=== PATIENT | male | born 1985 | race Caucasian/White ===

== ENCOUNTER 2022-09-01 14:37 | Inpatient (IN) | payer OTHER, SELFPAY ==
[2022-09-01] VITALS (7 sets, daily range): BP systolic 129–157; BP diastolic 77–85; PULSE 98–126; RESP 18–20; TEMP 37.1–37.4; O2SAT 94–98; BMI 40.5; BMI 40.8
--- NOTE | 2022-09-01 14:51 | PC.NURSE ---
Attempted IV 3 times without success, pt stated that usually have issues starting IVs.
--- NOTE | 2022-09-01 15:25 | XR_ITS ---
FINAL REPORT CLINICAL HISTORY: CHEST PAIN FINDINGS: SINGLE-VIEW CHEST The heart size is normal. The mediastinum is normal. There are bilateral pulmonary opacities, may represent atelectasis or pneumonia. There is no pneumothorax. IMPRESSION: Bilateral atelectasis versus pneumonia. Reviewed, Interpreted and Dictated by Kameron Wang III, MD Transcribed by Jenny Carver Authenticated and [facility]
[2022-09-01 15:32] LABS: Basophils # 0.1 K/mm3 (0-0.2); Basophils % 0.3 % (0.1-2.0); Eosinophils # 0.3 K/mm3 (0.0-0.4); Eosinophils % 1.3 % (0.1-12.0); Hematocrit 45.1 % (42.0-52.0); Hemoglobin 14.8 g/dL (14.1-18.0); Lymphocytes # 1.2 K/mm3 (0.7-4.5); Lymphocytes % 6.5 % (10-50); Mean Corpuscular HGB Conc 32.9 g/dL (31.8-35.4); Mean Corpuscular Hemoglobin 27.7 pg (27.0-31.2); Mean Corpuscular Volume 84.2 fl (80-94); Mean Platelet Volume 8.2 fl (7.4-10.4); Monocytes # 0.9 K/mm3 (0.1-1.0); Neutrophils # 16.1 K/mm3 (1.8-7.8); Neutrophils % 86.9 % (37.0-80.0); Platelet Count 379 K/mm3 (142-424); Red Blood Count 5.36 M/mm3 (4.60-6.20); Red Cell Distribution Width 13.7 % (11.5-17.5); White Blood Count 18.5 K/mm3 (4.8-10.8)
--- NOTE | 2022-09-01 15:35 | PC.NURSE ---
XR AT BEDSIDE
[2022-09-01 15:38] LABS: Anion Gap 18.7 mEq/L (5-15); Blood Urea Nitrogen 13 mg/dl (9-20); Calcium 9.1 mg/dl (8.4-10.2); Carbon Dioxide 24 mmol/L (22.0-30.0); Chloride 96 mmol/L (98-107); Creatinine Clearance Estimated 175 mL/min (50-200); Estimated Glomerular Filt Rate 75 ml/min (>60); GFR (African American) 91 ML/MIN (>60); Glucose 128 mg/dl (74-100); Potassium 3.7 mmoL/L (3.5-5.1); Sodium 135 mmol/L (136-145)
[2022-09-01 15:49] LABS: MANUAL DIFFERENTIAL MANUAL DIFFERENTIAL (MANUAL DIFF)
[2022-09-01 15:50] LABS: Troponin I 0.02 ng/ml (0.00-0.034)
--- NOTE | 2022-09-01 16:29 | HMH.EDGENADL ---
Discharge Plan Disposition Patient Disposition: Admitted As Inpatient Condition: Fair Chief Complaint: Chest Pain Prescriptions Prescriptions: No Action oxycodone-acetaminophen 5-325 mg tablet 1 tab PO Q6 Label Comments: TAKE 2 TABLETS BY MOUTH EVERY 4 HOURS FOR PAIN CONTROL. ondansetron HCl 4 mg tablet 4 mg PO Q6 Rexulti 1 mg tablet 1 mg PO DAILY Label Comments: TAKE 1 TABLET BY MOUTH EVERY DAY quetiapine 50 mg tablet 50 mg PO HS Label Comments: TAKE 1 TABLET BY MOUTH AT BEDTIME dextroamphetamine-amphetamine [Adderall] 10 mg Tablet 10 mg PO DAILY Referrals Follow up/Referrals: Provider,Referral, MD [Primary Care Provider] - See instructions Clinical Impressions Clinical Impression: Acute cholecystitis Discharge ED Provider: Marek Carmona General Adult HPI General Chief complaint: Chest Pain Stated complaint: CHEST PAIN Time Seen by Provider: 09/01/22 16:30 Mode of Arrival: Wheelchair Limitations: No Limitations Description of Symptoms (Recalled from ER Triage Doc. by RN): PT SENT FROM DR. TUCKER OFFICE. WHILE AT OFFICE PT HAD INCREASED HR. PT TO ED VIA WC WITH C/O CHEST PAIN, HEART RACING. REPORTS PAIN IN RIGHT SIDE. SEEN AT [facility] ED FOR GB, WAS AT [facility] FOR CONSULT. PT STATES NO BM X 4 DAYS. UNABLE TO EAT AND DRINK R/T NAUSEA FROM PAIN History of Present Illness HPI narrative: The patient is sent from Dr. Ayala's office. Patient developed right upper quadrant abdominal pain on 08/28/2022. States that he went to [facility] emergency department and had a CT scan that showed gallstones. Discharged on Percocet and Zofran and given a surgical referral. He saw Dr. yAala in the office today and at that time was in a lot of pain and tachycardic and therefore sent to the emergency department. He has had associated nausea and vomiting. No bowel movement in the past 6 days or so. Denies fever. He has had prior surgery on his abdomen for some sort of infection that required drainage tubes, 8 years ago. Related Data Home Medications Medication Instructions Recorded Confirmed brexpiprazole 1 mg tablet (Rexulti) 1 mg PO DAILY Depression 09/01/22 09/01/22 dextroamphetamine-amphetamine 10 10 mg PO DAILY ADHD 09/01/22 09/01/22 mg tablet (Adderall) ondansetron HCl 4 mg tablet 4 mg PO Q6 Nausea & vomiting 09/01/22 09/01/22 oxycodone-acetaminophen 5 mg-325 1 tab PO Q6 Pain 09/01/22 09/01/22 mg tablet quetiapine 50 mg tablet 50 mg PO HS SLEEP 09/01/22 09/01/22 Allergies Allergy/AdvReac Type Severity Reaction Status Date / Time No Known Allergies Allergy Verified 09/01/22 14:49 PFSH PFS Social History (Updated 09/01/22 @ 18:03 by Riri Pressley RN) Smoking Status: Never smoker alcohol intake: never substance use type: denies use current occupational status: employed Travel in the last 8 weeks: None ROS Obtained: Yes Systems reviewed as appropriate & no additional complaints except as documented Constitutional Constitutional: Denies fever(s), Denies headache(s) and Denies weakness ENT Ears, Nose, Mouth, and Throat: Denies headache(s), Denies nasal discharge and Denies sore throat Cardiovascular Cardiovascular: Denies chest pain Respiratory Respiratory: Denies shortness of breath and Denies cough Gastrointestinal Gastrointestingal: Reports abdominal pain, constipation, nausea and vomiting; Denies diarrhea Genitourinary Male Genitourinary: Denies difficulty urinating and Denies flank pain Musculoskeletal Musculoskeletal: Denies numbness Neurologic Neurologic: Denies headache(s), Denies numbness and Denies weakness Physical Exam General General appearance: alert and other (In distress secondary to pain) Head Head exam: atraumatic and normocephalic Eye Eye exam: Present normal appearance and EOMI ENT ENT exam: Present mucous membranes moist Neck Neck exam: Present normal inspection and trachea midline Chest Ches
[2022-09-01 16:31] LABS: Eosinophils % 1 % (0-3); Lymphocytes % 6 % (10-50); Monocytes % 5 % (2-9); Neutrophils % 88 % (42-76); Total Cells Counted 100
[2022-09-01 16:32] LABS: Spherocytes 1+
[2022-09-01 16:33] LABS: Acanthocytes 1+; Platelet Estimate Normal
--- NOTE | 2022-09-01 16:34 | PC.NURSE ---
DR. FREY AT BEDSIDE FOR EVALUATION
[2022-09-01 16:38] LABS: Alanine Aminotransferase 93 U/L (12-78); Albumin Level 3.9 g/dl (3.5-5.0); Alkaline Phosphatase 191 U/L (38-126); Aspartate Amino Transferase 58 U/L (17-59); Bilirubin, Conjugated 0.3 mg/dL (0.0-0.3); Bilirubin,Direct 1.4 mg/dl (0.0-0.4); Bilirubin,Indirect 0.8 mg/dL (0.0-0.9); Bilirubin,Total 2.2 mg/dl (0.2-1.3); Bilirubin,Unconjugated 0.8 mg/dL (0.0-1.1); Lipase 18 U/L (23-300); Total Protein,Serum 7.5 g/dl (6.3-8.2)
--- NOTE | 2022-09-01 16:39 | ECG_ITS ---
APPROVED REPORT Exam: Resting ECG HR:116 bpm ECG Measurements Heart Rate 116 AXES IL 130 P 40 QRSd 89 QRS 4 QT 335 T 23 QTc 404 Conclusion SINUS TACHYCARDIA NONSPECIFIC ST & T-WAVE ABNORMALITY ABNORMAL RHYTHM ECG UNCONFIRMED REPORT Electronically signed by : Tc Crump MD 09/02/2022 13:21:59
--- NOTE | 2022-09-01 16:39 | PC.NURSE ---
DR. CADENA PAGED AT THIS TIME
--- NOTE | 2022-09-01 16:40 | PC.NURSE ---
DR. FREY SPEAKING WITH DR. CADENA
--- NOTE | 2022-09-01 16:41 | US_ITS ---
PROCEDURE INFORMATION: Exam: US Abdomen, Limited; Right Upper Quadrant Exam date and time: 09/01/2022 5:24 PM Age: 37 years old Clinical indication: Abdominal pain; Other: Ruq at gb area; Additional info: Ruq pain multiple gallstones elevated BP TECHNIQUE: Imaging protocol: Real time ultrasound of the abdomen with image documentation. Limited exam focused on the right upper quadrant. COMPARISON: No relevant prior studies available. FINDINGS: Liver: There is mild enlargement of the liver. Hepatopetal flow involves the main portal vein.There is increase in hepatic echogenicity and coarsened echotexture suggesting fatty and or fibrotic change Gallbladder: There is a positive sonographic Hyde sign. The Gallbladder is enlarged and contains multiple stones. The gallbladder measures 15 x 5.8 x 5.6 cm. The gallbladder wall is thickened measuring 6.8 mm. Biliary ducts: Common duct is mildly dilated measuring 6.7 mm. Pancreas: The pancreas is obscured by overlying bowel gas. Right kidney: The right kidney measures 9.9 x 5.6 x 6.9 cm. Survey views appear within range of normal without hydronephrosis. IMPRESSION: 1. Cholelithiasis with gallbladder distension, wall thickening and positive sonographic Hyde sign suspicious for acute cholecystitis. Correlate clinically. 2. Common bile duct mildly dilated measuring 6.8 mm. 3. Pancreas obscured by overlying bowel gas. 4. Normal survey views of the right kidney. 5. Mild hepatomegaly.
--- NOTE | 2022-09-01 16:41 | CT_ITS ---
PROCEDURE INFORMATION: Exam: CT Abdomen And Pelvis With Contrast Exam date and time: 09/01/2022 6:01 PM Age: 37 years old Clinical indication: Abdominal pain; Localized; Right upper quadrant (ruq); Patient HX: Patient had a cat scan last Wednesday at another hospital and was told he has gall stones. Here today to see surgeon and his blood pressure went really high and he was sent to er to be evaluated. ; Additional info: Ruq pain TECHNIQUE: Imaging protocol: Computed tomography of the abdomen and pelvis with contrast. Radiation optimization: All CT scans at this facility use at least one of these dose optimization techniques: automated exposure control; mA and/or kV adjustment per patient size (includes targeted exams where dose is matched to clinical indication); or iterative reconstruction. Contrast material: ISOVUE; Contrast volume: 75 ml; Contrast route: IV; COMPARISON: US GALLBLADDER 09/01/2022 5:24 PM FINDINGS: Lungs: Nonspecific mild bibasilar opacities are consistent with atelectasis, edema, or pneumonia. Pleural spaces: There is a small right pleural fluid collection present. There is a small left pleural fluid collection present. There are no pleural effusions. Heart: The visualized portions of the heart are unremarkable. There is no evidence of pericardial fluid collections. Liver: There is diffuse decrease in hepatic parenchymal density consistent with fatty infiltration. Gallbladder and bile ducts: There is mild gallbladder distension measuring 5.6 x 11.4 by 6.4 cm. There is gallbladder wall thickening, pericholecystic fat stranding and stones and/or sludge. A few small collections of gas within the gallbladder are most consistent with stones. No significant common bile duct dilatation. There is a trace amount of free fluid. There is a somewhat amorphous focus of peripheral increased density an central decreased attenuation within the gallbladder fossa best seen on series 1002, images 53 and 52 measuring approximately 2 x 2.2 cm which likely reflects additional stones and/or sludge. Pancreas: Minor proximal peripancreatic fat stranding is likely due to its proximity to the adjacent inflamed gallbladder. Cannot exclude subtle mild proximal pancreatitis. Spleen: The spleen demonstrates punctate calcifications, consistent with remote granulomatous organism exposure. Adrenal glands: The adrenal glands are normal. Kidneys and ureters: The kidneys are normal. Stomach and bowel: There is hazy jackelyn duodenal and pericolonic fat stranding involving the adjacent duodenum and hepatic flexure which is likely due to proximity to the gallbladder suggesting secondary inflammatory change. The stomach is within range of normal. The remainder of the duodenum appears normal. Lack of gastrointestinal contrast limits evaluation of bowel. The colon is otherwise within range of normal. Unopacified loops of small bowel are within range of normal. Appendix: No evidence of appendicitis. Intraperitoneal space: There is a small amount of free fluid present in the pelvis. Small amounts of fluid are present in the pericolic gutters bilaterally. No evidence of intraperitoneal free air. Vasculature: No abdominal aortic aneurysm. Lymph nodes: . No enlarged lymph nodes. Urinary bladder: The urinary bladder is incompletely distended.There is mild bladder wall thickening. Reproductive: Unremarkable as visualized. Bones/joints: There are mild degenerative changes of the hip joints. There are mild degenerative changes of the sacroiliac joints. The thoracolumbar spine demonstrates mild degenerative changes at multiple levels. Soft tissues: Trace fat stranding a
[2022-09-01 17:05] LABS: Lactic Acid 1.1 mmol/L (0.7-2.1)
--- NOTE | 2022-09-01 17:19 | PC.NURSE ---
Went to give patient, meds, gave zofran and had hooked up fluids, IV had infiltrated. Dione assisted with starting new IV, started new 20 ga left wrist, the IV fluids rehooked and 1 of dilaudid given.
--- NOTE | 2022-09-01 17:30 | PC.NURSE ---
PT TO CT AT THIS TIME
--- NOTE | 2022-09-01 17:53 | PC.NURSE ---
PT RETURNED FROM CT
--- NOTE | 2022-09-01 17:59 | PC.NURSE ---
COVID SWAB COLLECTED, PT SITTING UP IN BED, NO NEEDS AT THIS TIME. AT BEDSIDE
[2022-09-01 18:40] LABS: Coronavirus 19, PCR Not Detected (NotDetected); Influenza A, PCR Not Detected (NotDetected); Influenza B, PCR Not Detected (NotDetected)
--- NOTE | 2022-09-01 20:17 | PC.NURSE ---
DR FREY SPOKE WITH DR CADENA HE WANTS HIM ADMITTED , HE ALSO SPOKE WITH HOSPITALIST, SHE WILL BE DOWN TO SEE PT
--- NOTE | 2022-09-01 20:32 | PC.NURSE ---
HOSPITALIST IN WITH PT
--- NOTE | 2022-09-01 21:08 | EXP.HP ---
History of Present Illness *Admission Date: 09/01/22 [facility] Social History (Updated 09/01/22 @ 18:03 by Riri Pressley RN) Smoking Status: Never smoker alcohol intake: never substance use type: denies use current occupational status: employed Travel in the last 8 weeks: None Review of Systems Constitutional Constitutional: Denies headache(s) and Denies weakness ENT Ears, Nose, Mouth, and Throat: Denies headache(s) *Musculoskeletal Musculoskeletal: Denies numbness *Neurologic Neurologic: Denies headache(s), Denies numbness and Denies weakness Meds Home Medications and Allergies Home Medications Medication Instructions Recorded Confirmed Type brexpiprazole 1 mg tablet (Rexulti) 1 mg PO DAILY Depression 09/01/22 09/01/22 History dextroamphetamine-amphetamine 10 10 mg PO DAILY ADHD 09/01/22 09/01/22 History mg tablet (Adderall) ondansetron HCl 4 mg tablet 4 mg PO Q6 Nausea & vomiting 09/01/22 09/01/22 History oxycodone-acetaminophen 5 mg-325 1 tab PO Q6 Pain 09/01/22 09/01/22 History mg tablet quetiapine 50 mg tablet 50 mg PO HS SLEEP 09/01/22 09/01/22 History New Prescriptions to Start Prescriptions: Allergies Allergy/AdvReac Type Severity Reaction Status Date / Time No Known Allergies Allergy Verified 09/01/22 14:49 Exam Data for Last 24 hours Vital signs and Labs for Last 24 Hours: Temp Pulse Resp BP Pulse Ox 98.7 F 110 H 20 145/77 H 94 L 09/01/22 14:38 09/01/22 17:01 09/01/22 14:38 09/01/22 17:01 09/01/22 17:01 Laboratory Results - last 24 hr 09/01/22 15:24: WBC 18.5 H, RBC 5.36, Hgb 14.8, Hct 45.1, MCV 84.2, MCH 27.7, MCHC 32.9, RDW 13.7, Plt Count 379, MPV 8.2, Neut % (Auto) 86.9 H, Lymph % (Auto) 6.5 L, [place] % (Auto) 5.0, Eos % (Auto) 1.3, Baso % (Auto) 0.3, Neut # (Auto) 16.1 H, Lymph # (Auto) 1.2, [place] # (Auto) 0.9, Eos # (Auto) 0.3, Baso # (Auto) 0.1, Total Counted 100, Neutrophils % (Manual) 88 H, Lymphocytes % (Manual) 6 L, Monocytes % (Manual) 5, Eosinophils % (Manual) 1, Platelet Estimate Normal, Spherocytes 1+, Acanthocytes (Spur) 1+ 09/01/22 15:24: Sodium 135 L, Potassium 3.7, Chloride 96 L, Carbon Dioxide 24, Anion Gap 18.7 H, BUN 13, Creatinine 1.10, Estimated Creat Clear 175, Estimated GFR 75, Est GFR ( Amer) 91, Glucose 128 H, Calcium 9.1, Troponin I 0.02 09/01/22 15:24: Total Bilirubin 2.2 H, Direct Bilirubin 1.4 H, Conjugated Bilirubin 0.3, Indirect Bilirubin 0.8, Unconjugated Bilirubin 0.8, AST 58, ALT 93 H, Alkaline Phosphatase 191 H, Total Protein 7.5, Albumin 3.9, Lipase 18 L 09/01/22 16:45: Lactate 1.1 09/01/22 17:57: SARS-CoV-2 (PCR) Not detected, Influenza A Untype (PCR) Not detected, Influenza Type B (PCR) Not detected I & O for Last 24 hours: Intake & Output 08/29/22 08/30/22 08/31/22 09/01/22 23:59 23:59 23:59 23:59 Weight 135.624 kg
--- NOTE | 2022-09-01 21:10 | EXP.HP ---
History of Present Illness *Admission Date: 09/01/22 *Reason for visit:: Abdominal Pain *History of present illness: Mr. Prather is a 37-year-old male with a past medical history that is positive for ADHD and Depression. He presents to [facility] through the ER due to abdominal pain. The patient was seen in the ER prior to admission. He reports that he was originally seen in the ER at an outlying facility on 08/28 due to right upper quadrant abdominal pain. He had a CT of the abdomen and pelvis that showed Cholelithiasis. He had a follow-up appointment arranged with Surgeon Dr. Aayla. When he went in to see the surgeon he was having significant abdominal pain and was Tachycardic. He was sent to the ER for evaluation. In the ER the patient was noted Tachycardic with HR 110, WBC was elevated at 18.5, CT of the abdomen and pelvis showed gallbladder distention with gallbladder wall thickening and pericholecystic inflammatory changes. Ultrasound of the gallbladder showed the same findings and common bile duct was mildly dilated at 6.8 cm. In the ER the patient received antibiotics, fluids and pain control. The patient will be admitted with initial impression: Sepsis and Acute Cholecystitis. Surgery will be consulted to see the patient. The plan of care was discussed with the patient and at admission in the ER. Both verbalized understanding and agreement with the plan of care. [facility] Medical History ADHD Depression Surgical History Status post repair of glenoid labrum Social History Smoking Status: Never smoker alcohol intake: never substance use type: denies use current occupational status: employed Travel in the last 8 weeks: None Review of Systems Review of Systems Review of systems:: pertinent systems reviewed and negative unless documented below Constitutional Constitutional: Reports body ache(s) Eyes Eyes: Reports system reviewed and no additional complaints, except as documented ENT Ears, Nose, Mouth, and Throat: Reports system reviewed and no additional complaints, except as documented *Cardiovascular Cardiovascular: Reports system reviewed and no additional complaints, except as documented *Respiratory Respiratory: Reports system reviewed and no additional complaints, except as documented *Gastrointestinal Gastrointestinal: Reports abdominal pain, Reports bloating, Reports nausea and Reports vomiting *Genitourinary Genitourinary: Reports system reviewed and no additional complaints, except as documented *Musculoskeletal Musculoskeletal: Reports system reviewed and no additional complaints, except as documented Integumentary/Breasts Skin/Breast: Reports system reviewed and no additional complaints, except as documented *Neurologic Neurologic: Reports system reviewed and no additional complaints, except as documented Psychiatric Psychiatric: Reports system reviewed and no additional complaints, except as documented Endocrine Endocrine: Reports system reviewed and no additional complaints, except as documented Hematologic/Lymphatic Hematologic/Lymphatic: Reports system reviewed and no additional complaints, except as documented Allergic/Immunologic Allergic/Immunologic: Reports system reviewed and no additional complaints, except as documented Meds Home Medications and Allergies Home Medications Medication Instructions Recorded Confirmed Type brexpiprazole 1 mg tablet (Rexulti) 1 mg PO DAILY Depression 09/01/22 09/01/22 History dextroamphetamine-amphetamine 10 10 mg PO 1500 ADHD 09/01/22 09/02/22 History mg tablet (Adderall) ondansetron HCl 4 mg tablet 4 mg PO TIDP PRN Nausea And 09/01/22 09/02/22 History Vomiting quetiapine 50 mg tablet (Seroquel) 50 mg PO HS Insomnia 09/01/22 09/01/22 History desvenlafaxi
--- NOTE | 2022-09-01 21:25 | PC.NURSE ---
PT ARRIVED TO FLOOR VIA WHEELCHAIR AT THIS TIME
--- NOTE | 2022-09-01 22:31 | EXP.SEPSISRE ---
[facility] Tissue Perfusion Eval Sepsis Re-Evaluation Performed: Yes Date Performed: 09/01/22 Time Performed: 20:30
[2022-09-02] VITALS (23 sets, daily range): BP systolic 91–157; BP diastolic 67–97; PULSE 90–130; RESP 14–20; TEMP 36.6–43; O2SAT 93–99; BMI 40.7
--- NOTE | 2022-09-02 05:12 | PC.NURSE ---
Shift summary : Pt a/ox4. Pt has c/o of RUQ abdominal pain t/o shift. PRN pain medication administered, pt states favorable results. Ambulating to BR independently. Call light within reach.
--- NOTE | 2022-09-02 07:57 | EXP.SURG.CON ---
History of Present Illness *Admission Date: 09/01/22 *Reason for visit:: Abdominal pain *History of present illness: Patient is a 37-year-old male from [facility] who had presented to [facility] emergency department on 08/28/2022 with acute right upper quadrant pain. Work-up in the emergency department included CT scan which revealed findings of gallstones and an otherwise unremarkable gallbladder . He was managed as an outpatient and scheduled to see a surgeon as an outpatient. Apparently the surgeon was not in his insurance network and he had set up an appointment to see me in the office yesterday on 09/01/2022. Reports that he had severe pain ever since 08/28/2022. When he presented to the office he was experiencing unrelenting pain and noted to have a heart rate of 143. He was sent to the emergency department due to potential sepsis and acute abdomen. Evaluation in the emergency department revealed leukocytosis of 18,500. Liver function tests reveal a bilirubin of 2.2 with ALT of 93 and alkaline phosphatase of 191. He underwent CT scan which revealed findings of mild gallbladder wall distention and gallbladder wall thickening with cholelithiasis and pericholecystic inflammatory change change. There was actually stranding in the pericolonic fat, duodenum, and hepatic flexure felt to be secondary to significant cholecystitis. Also found to be a small to moderate amount of free fluid. Ultrasound revealed findings of cholelithiasis with gallbladder distention, wall thickening, positive sonographic Hyde sign suspicious for acute cholecystitis. He was admitted for inpatient management for acute cholecystitis. Interestingly the patient does state that he had a previous abdominal infection and had drain tubes placed for about 2 months approximately 8 or 9 years ago. He does not know the details of this. [facility] Medical History ADHD Depression Surgical History Status post repair of glenoid labrum Social History Smoking Status: Never smoker alcohol intake: never substance use type: denies use current occupational status: employed Travel in the last 8 weeks: None Review of Systems Constitutional Constitutional: Denies headache(s) and Denies weakness ENT Ears, Nose, Mouth, and Throat: Denies headache(s) *Musculoskeletal Musculoskeletal: Denies numbness *Neurologic Neurologic: Reports system reviewed and no additional complaints, except as documented, Denies headache(s), Denies numbness and Denies weakness Meds Home Medications and Allergies Home Medications Medication Instructions Recorded Confirmed Type brexpiprazole 1 mg tablet (Rexulti) 1 mg PO DAILY Depression 09/01/22 09/01/22 History dextroamphetamine-amphetamine 10 10 mg PO DAILY ADHD 09/01/22 09/01/22 History mg tablet (Adderall) ondansetron HCl 4 mg tablet 4 mg PO Q6 Nausea & vomiting 09/01/22 09/01/22 History oxycodone-acetaminophen 5 mg-325 1 tab PO Q6 Pain 09/01/22 09/01/22 History mg tablet quetiapine 50 mg tablet 50 mg PO HS SLEEP 09/01/22 09/01/22 History New Prescriptions to Start Prescriptions: Allergies Allergy/AdvReac Type Severity Reaction Status Date / Time No Known Allergies Allergy Verified 09/01/22 14:49 Exam (Inpt) Vital signs and Labs for Last 24 Hours: Temp Pulse Resp BP Pulse Ox 98.3 F 101 H 20 156/76 H 95 09/02/22 04:00 09/02/22 04:00 09/02/22 04:00 09/02/22 04:00 09/02/22 04:00 Laboratory Results - last 24 hr 09/01/22 15:24: WBC 18.5 H, RBC 5.36, Hgb 14.8, Hct 45.1, MCV 84.2, MCH 27.7, MCHC 32.9, RDW 13.7, Plt Count 379, MPV 8.2, Neut % (Auto) 86.9 H, Lymph % (Auto) 6.5 L, [place] % (Auto) 5.0, Eos % (Auto) 1.3, Baso % (Auto) 0.3, Neut # (Auto) 16.1 H, Lymph # (Auto) 1.2, [place] # (Auto) 0.9, Eos # (Auto) 0.3,
[2022-09-02 09:11] LABS: Basophils % 0.1 % (0.1-2.0); Eosinophils # 0.3 K/mm3 (0.0-0.4); Eosinophils % 1.7 % (0.1-12.0); Hematocrit 39.5 % (42.0-52.0); Lymphocytes # 1.1 K/mm3 (0.7-4.5); Lymphocytes % 7.6 % (10-50); Mean Corpuscular HGB Conc 33.7 g/dL (31.8-35.4); Mean Corpuscular Hemoglobin 28.3 pg (27.0-31.2); Mean Platelet Volume 8.2 fl (7.4-10.4); Monocytes # 0.7 K/mm3 (0.1-1.0); Monocytes % 4.5 % (1.7-9.3); Neutrophils # 12.6 K/mm3 (1.8-7.8); Neutrophils % 86.1 % (37.0-80.0); Platelet Count 360 K/mm3 (142-424); Red Cell Distribution Width 13.8 % (11.5-17.5); White Blood Count 14.6 K/mm3 (4.8-10.8)
[2022-09-02 09:24] LABS: Alanine Aminotransferase 111 U/L (12-78); Albumin Level 3.6 g/dl (3.5-5.0); Albumin/Globulin Ratio 1.1 (1.1-1.8); Alkaline Phosphatase 238 U/L (38-126); Anion Gap 15.4 mEq/L (5-15); Aspartate Amino Transferase 79 U/L (17-59); Bilirubin,Total 1.7 mg/dl (0.2-1.3); Blood Urea Nitrogen 9 mg/dl (9-20); Calcium 8.8 mg/dl (8.4-10.2); Carbon Dioxide 27 mmol/L (22.0-30.0); Chloride 96 mmol/L (98-107); Creatinine Clearance Estimated 215 mL/min (50-200); Estimated Glomerular Filt Rate 94 ml/min (>60); GFR (African American) 114 ML/MIN (>60); Globulin 3.2 g/dL (1.3-3.2); Glucose 105 mg/dl (74-100); Potassium 3.4 mmoL/L (3.5-5.1); Sodium 135 mmol/L (136-145); Total Protein,Serum 6.8 g/dl (6.3-8.2)
[2022-09-02 09:27] LABS: Hemoglobin 13.4 g/dL (14.1-18.0); MANUAL DIFFERENTIAL MANUAL DIFFERENTIAL (MANUAL DIFF)
[2022-09-02 09:43] LABS: Lymphocytes % 8 % (10-50); Monocytes % 4 % (2-9); Neutrophils % 88 % (42-76); Total Cells Counted 100
[2022-09-02 09:44] LABS: Platelet Estimate Normal; RBC Morphology Normal
--- NOTE | 2022-09-02 12:56 | EXP.ACUTE.PN ---
Subjective *Date: 09/02/22 *Time: 12:56 Interval history: Patient continues to complain of pain this morning in his right upper quadrant. It is better but still prominent. Morphine not helping significantly. Remains afebrile and hemodynamically stable. Surgery saw him on morning rounds, planning for cholecystectomy today. Denies any nausea or vomiting. No diarrhea. No shortness of breath or chest pain. Questions answered on rounds. 14 point review of systems performed, pertinent positives and negatives as per above. Medical Exam Vital signs and Labs for Last 24 Hours: Vital Signs Temp Pulse Pulse Resp BP BP Pulse Ox 09/02/22 12:00 90 09/02/22 08:00 100 H 09/02/22 11:34 98.3 F 99 H 14 127/78 94 L 09/02/22 08:00 98.5 F 105 H 14 142/78 H 99 09/02/22 04:00 100 H 09/02/22 00:00 100 H 09/01/22 21:00 120 H 09/02/22 04:00 98.3 F 101 H 20 156/76 H 95 09/01/22 23:54 99.4 F 98 H 18 137/78 95 09/01/22 21:51 117 H 94 L 09/01/22 21:34 98.7 F 117 H 20 129/79 94 L 09/01/22 21:09 99 F 100 H 18 133/78 09/01/22 17:01 110 H 145/77 H 94 L 09/01/22 14:38 98.7 F 126 H 20 157/85 H 96 Intake and Output 09/01/22 09/02/22 09/02/22 23:59 07:59 15:59 Intake Total 222 / 222 137 / 137 Output Total 0 / 0 250 / 250 Balance 222 / 222 -113 / -113 Intake: Intake, Oral Amount 222 / 222 Intake, Total IV Amount 137 / 137 Metronidaz/Sod Chl 500 mg In / 100 ml @ 100 mls/hr IV Q8H STELLA Rx#:[id number] Piperacillin/Tazo 3.375 gm In 0 45 / 45 .9 % Sodium Chloride 50 ml @ 100 mls/hr IV Q6H STELLA Rx#: [id number] Output: Output, Urine Amount 0 / 0 250 / 250 Other: Number of Voids 1 Number of Unmeasured Voids 0 1 Weight 136.803 kg 136.531 kg Patient Weight 09/02/22 23:59 Weight 136.531 kg Laboratory Results - last 24 hr 09/01/22 15:24: WBC 18.5 H, RBC 5.36, Hgb 14.8, Hct 45.1, MCV 84.2, MCH 27.7, MCHC 32.9, RDW 13.7, Plt Count 379, MPV 8.2, Neut % (Auto) 86.9 H, Lymph % (Auto) 6.5 L, [place] % (Auto) 5.0, Eos % (Auto) 1.3, Baso % (Auto) 0.3, Neut # (Auto) 16.1 H, Lymph # (Auto) 1.2, [place] # (Auto) 0.9, Eos # (Auto) 0.3, Baso # (Auto) 0.1, Total Counted 100, Neutrophils % (Manual) 88 H, Lymphocytes % (Manual) 6 L, Monocytes % (Manual) 5, Eosinophils % (Manual) 1, Platelet Estimate Normal, Spherocytes 1+, Acanthocytes (Spur) 1+ 09/01/22 15:24: Sodium 135 L, Potassium 3.7, Chloride 96 L, Carbon Dioxide 24, Anion Gap 18.7 H, BUN 13, Creatinine 1.10, Estimated Creat Clear 175, Estimated GFR 75, Est GFR ( Amer) 91, Glucose 128 H, Calcium 9.1, Troponin I 0.02 09/01/22 15:24: Total Bilirubin 2.2 H, Direct Bilirubin 1.4 H, Conjugated Bilirubin 0.3, Indirect Bilirubin 0.8, Unconjugated Bilirubin 0.8, AST 58, ALT 93 H, Alkaline Phosphatase 191 H, Total Protein 7.5, Albumin 3.9, Lipase 18 L 09/01/22 16:45: Lactate 1.1 09/01/22 17:57: SARS-CoV-2 (PCR) Not detected, Influenza A Untype (PCR) Not detected, Influenza Type B (PCR) Not detected 09/02/22 09:00: WBC 14.6 H, RBC 4.70, Hgb 13.4 L, Hct 39.5 L, MCV 84.0, MCH 28.3, MCHC 33.7, RDW 13.8, Plt Count 360, MPV 8.2, Neut % (Auto) 86.1 H, Lymph % (Auto) 7.6 L, [place] % (Auto) 4.5, Eos % (Auto) 1.7, Baso % (Auto) 0.1, Neut # (Auto) 12.6 H, Lymph # (Auto) 1.1, [place] # (Auto) 0.7, Eos # (Auto) 0.3, Baso # (Auto) 0.0, Total Counted 100, Neutrophils % (Manual) 88 H, Lymphocytes % (Manual) 8 L, Monocytes % (Manual) 4, Platelet Estimate Normal, RBC Morphology Normal 09/02/22 09:00: Sodium 135 L, Potassium 3.4 L, Chloride 96 L, Carbon Dioxide 27, Anion Gap 15.4 H, BUN 9 D, Creatinine 0.90, Estimated Creat Clear 215, Estimated GFR 94, Est GFR ( Amer) 114 D, Glucose 105 H, Calcium 8.8, Total Bilirubin 1.7 H, AST 79 H D, ALT 111 H, Alkaline Phosphatase 238 H, Total Protein 6.8, Albumin 3.6, Globulin 3.2, Albumin/Globulin Ratio 1.1 I & O for Labs for
--- NOTE | 2022-09-02 13:45 | P.PN_ITS ---
PFSH PFSH Medical History ADHD Depression Surgical History Status post repair of glenoid labrum Social History Smoking Status: Never smoker alcohol intake: never substance use type: denies use current occupational status: employed Travel in the last 8 weeks: None [facility] Anesthesia Checklist Patient Identification Patient Identification: Arm Band Structural Data Admitted From: Home Planned Operative Procedure/s: Lap. pate Consent for Planned Operative Procedure(s) Verified: Yes NPO Status Verified Time NPO: 00:00 Chart Verification Results Verified: CBC and BMP Airway Assessment C-Spine Mobility Assessed: Yes TMJ Mobility Assessed: Yes Dentition: Good Dentition (Large tongue) Neurological Assessment Level of Consciousness: Awake Hx Seizures: No Numbness or tingling in extremities: No Anesthesia Plan Anesthesia Risk discussed: Yes Anesthesia Plan: Verified ASA Class: II Anesthesia Type: General
--- NOTE | 2022-09-02 15:30 | SUR.OPER ---
1528 family updated via Adrian Miller RN
--- NOTE | 2022-09-02 16:29 | SUR.OPER ---
late entry 1355 made decision to open 1402 open incision was made 1406 family given update via Rio Beard RN regarding making an open incision
--- NOTE | 2022-09-02 18:42 | EXP.OP.NOTE ---
Date of procedure: 09/02/22 Pre-op Diagnosis:: Acute calculus cholecystitis Post-op Diagnosis:: Same Procedure performed:: Diagnostic laparoscopy Open cholecystectomy for severe necrotizing acute calculus cholecystitis Surgeon:: Kameron Ayala MD Anesthesia: ANDÉRS Estimated blood loss (mL): 100 Clinical Note:: Patient is a 37-year-old male from [facility]. He has had some symptoms occasionally every few months possibly consistent with biliary colic. However, on 08/28/2002 he had acute onset of severe excruciating pain reportedly. He was seen and evaluated in the emergency department at [facility]. Exact details are unknown but his CT scan report has been obtained which revealed findings of gallstones in an otherwise unremarkable gallbladder . Patient was managed as an outpatient and referred for surgical evaluation. Apparently the initial surgeon he was referred for was out of his insurance network and he presented to my office in the afternoon of 09/01/2022. At that time he was quite uncomfortable in some distress showing signs of sepsis with heart rate of 143. Patient was sent to the emergency department for evaluation of findings of sepsis and acute abdomen. He was found to have a leukocytosis of 18,500 with left shift. Liver function tests reveal bilirubin of 2.2 with alkaline phosphatase of 191 and ALT of 93. He underwent CT scan which revealed findings of gallbladder wall thickening and gallbladder distention with cholelithiasis and pericholecystic inflammatory changes. There is actually noted to be stranding in the pericolonic fat, duodenum, hepatic flexure all of which is felt to be secondary to severe cholecystitis. There is also moderate amount of free fluid. Ultrasound revealed findings of cholelithiasis with gallbladder distention, wall thickening, positive sonographic Hyde sign suspicious for acute cholecystitis. Patient was admitted for inpatient management and surgical consultation. He had ongoing pain. Despite antibiotics he had continued leukocytosis. Interestingly the patient did state that he had previous abdominal infection and had peritonitis about 8 years ago and had drain tubes for approximately 2 months. The exact details of this are unknown. Arrangements were made for cholecystectomy. Operative findings:: Patient had findings of phlegmonous cholecystitis with generalized peritonitis with inflammatory exudate in the right upper quadrant with loops of bowel adherent to the anterior abdomen. There were findings of necrotizing acute cholecystitis with some patchy gangrene of the gallbladder. Gallbladder was massively distended and markedly thickened and filled with numerous large gallstones. There was severe inflammatory change in the right upper quadrant around the maximo hepatis and identification and delineation of normal anatomy was difficult. There was a small to moderate amount of bile-stained fluid around the liver and in the pelvis. There were possibly some ducts of Luschka in the gallbladder fossa as there was noted to be some mild bile-stained discharge from the gallbladder fossa which was ultimately eliminated with cautery and topical hemostatic agent. Operative duration just over 4 hours Operative note:: Consent was obtained and patient was taken to the operating room. He was given additional preoperative antibiotics. In the operating room he was placed in a supine position. General anesthesia was induced via endotracheal tube. Prior to prepping and draping palpation of the abdomen revealed findings of possible firm mass in the right upper quadrant. His abdomen was prepped and draped in the standard surgical fashion. Subumbilical skin incision was made while performing abdominal wall lift. Veress needle was inserted. CO2 pneumoperitoneum was achieved to 15 mmHg. 11 mm optical trocar was inserted at the umbilicus. Intraperitoneal contents were visualized. He was position
--- NOTE | 2022-09-02 18:55 | P.PNANES_ITS ---
[facility] Anesthesia Record Part I Anesthesia Record I Intake, IV Amount: 2,200 Estimated blood loss (mL): 50 Urine output (mL): 200 Blood Products used (#): none Blood Pressure: 157/97 SaO2: 93 Pulse Rate: 115 Respiratory Rate: 16 Temperature: 98.6 F (Axillary) Patient is:: Drowsy and Stable Stable to PACU at:: 18:45
--- NOTE | 2022-09-02 19:02 | SUR.OPER ---
1839- in and out cath done per verbal order in the OR. 200ml of urine drained.
--- NOTE | 2022-09-02 19:36 | PC.NURSE ---
patient up to floor via stretcher from surgery @ this time.
--- NOTE | 2022-09-02 19:43 | SUR.PHASEI ---
1933- detailed report called to shabbir chun on [facility] floor 1934- pt left in stable condition in room 214 with shabb[facility] ward. Bed in lowest position, side rails up and family at bedside. All vitals stable and all dressings CDI
[2022-09-03] VITALS (19 sets, daily range): BP systolic 83–146; BP diastolic 30–95; PULSE 110–141; RESP 16–28; TEMP 36.4–37.1; O2SAT 91–100; BMI 42.0
[2022-09-03 03:18] LABS: POC Glucose,Bedside 197 (70-110)
--- NOTE | 2022-09-03 04:54 | PC.NURSE ---
0112 Pts opens pt door and yells for help 0113 When entering pt room, pt appears pallor and is cool to the touch, diaphoretic, hard to awaken. Pt states he had just thrown up. Vital signs are as follows: BP 83/44, HR 141, O2 99% RA, RR 28, temp 98.0. 0115 Blood sugar taken - 198 0116 Hospitalist notified 0120 Hospitalist in room New orders for 2L NS verified and carried out. 0149 Pt given 4mg Zofran 0150 Vitals: Bp 104/63, HR 134, O2 98% RA, RR 24, temp 97.6. Pt more alert and able to answer questions at this time. States he fells very weak and is having significant pain. 0159 Pain medication given 0220 Vitals 100/66, HR 126, O2 99%, RR 18 0250 Pt dry heaving in room 0259 Phenergan hung and pt cleaned up 0330 Vitals: bp 107/60, HR 128, O2 100% RA, RR 16 Pt states he is feeling much better.
--- NOTE | 2022-09-03 05:59 | PC.NURSE ---
Shift summary: Pt BP has improved since receiving 2 L bolus. Current BP 199/67, HR 123, O2 98% RA, RR 16. Pt resting comfortably. Pt has c/o right abdominal pain and nausea multiple times t/o shift. PRN medication administered with favorable results. Pt did have 1 incontinent urine t/o night. Pt cleaned up. 60 ml emptied from ROSALINA dran. DSG CDI. at bedside. Call light within reach.
[2022-09-03 06:59] LABS: Alanine Aminotransferase 449 U/L (12-78); Albumin Level 2.8 g/dl (3.5-5.0); Alkaline Phosphatase 154 U/L (38-126); Bilirubin,Total 1.1 mg/dl (0.2-1.3); Blood Urea Nitrogen 17 mg/dl (9-20); Calcium 7.4 mg/dl (8.4-10.2); Carbon Dioxide 25 mmol/L (22.0-30.0); Creatinine Clearance Estimated 69 mL/min (50-200); Estimated Glomerular Filt Rate 49 ml/min (>60); GFR (African American) 59 ML/MIN (>60); Globulin 2.7 g/dL (1.3-3.2); Glucose 139 mg/dl (74-100); Magnesium 1.6 mg/dl (1.6-2.3); Potassium 4.2 mmoL/L (3.5-5.1); Sodium 135 mmol/L (136-145); Total Protein,Serum 5.5 g/dl (6.3-8.2)
[2022-09-03 07:05] LABS: Anion Gap 15.2 mEq/L (5-15); Chloride 99 mmol/L (98-107)
[2022-09-03 07:06] LABS: Aspartate Amino Transferase 754 U/L (17-59); Basophils % 0.1 % (0.1-2.0); Eosinophils % 0.1 % (0.1-12.0); Hematocrit 27.3 % (42.0-52.0); Lymphocytes % 6.3 % (10-50); Mean Corpuscular HGB Conc 34.3 g/dL (31.8-35.4); Mean Corpuscular Hemoglobin 28.9 pg (27.0-31.2); Mean Corpuscular Volume 84.5 fl (80-94); Mean Platelet Volume 8.7 fl (7.4-10.4); Monocytes % 6.3 % (1.7-9.3); Neutrophils # 13.8 K/mm3 (1.8-7.8); Neutrophils % 87.2 % (37.0-80.0); Platelet Count 448 K/mm3 (142-424); Red Blood Count 3.24 M/mm3 (4.60-6.20); White Blood Count 15.8 K/mm3 (4.8-10.8)
[2022-09-03 07:19] LABS: Hemoglobin 9.4 g/dL (14.1-18.0); MANUAL DIFFERENTIAL MANUAL DIFFERENTIAL (MANUAL DIFF)
--- NOTE | 2022-09-03 07:27 | EXP.SURG.PN ---
Subjective Narrative: Patient apparently had event overnight of some tachycardia and hypotension. He describes some pain in the right abdomen as sharp . He did have a single episode of vomiting. Exam Data for Last 24 hours Vital signs and Labs for Last 24 Hours: Temp Pulse Resp BP Pulse Ox 97.7 F 123 H 16 119/67 98 09/03/22 04:00 09/03/22 05:58 09/03/22 05:58 09/03/22 05:58 09/03/22 05:58 Laboratory Results - last 24 hr 09/02/22 09:00: WBC 14.6 H, RBC 4.70, Hgb 13.4 L, Hct 39.5 L, MCV 84.0, MCH 28.3, MCHC 33.7, RDW 13.8, Plt Count 360, MPV 8.2, Neut % (Auto) 86.1 H, Lymph % (Auto) 7.6 L, [place] % (Auto) 4.5, Eos % (Auto) 1.7, Baso % (Auto) 0.1, Neut # (Auto) 12.6 H, Lymph # (Auto) 1.1, [place] # (Auto) 0.7, Eos # (Auto) 0.3, Baso # (Auto) 0.0, Total Counted 100, Neutrophils % (Manual) 88 H, Lymphocytes % (Manual) 8 L, Monocytes % (Manual) 4, Platelet Estimate Normal, RBC Morphology Normal 09/02/22 09:00: Sodium 135 L, Potassium 3.4 L, Chloride 96 L, Carbon Dioxide 27, Anion Gap 15.4 H, BUN 9 D, Creatinine 0.90, Estimated Creat Clear 215, Estimated GFR 94, Est GFR ( Amer) 114 D, Glucose 105 H, Calcium 8.8, Total Bilirubin 1.7 H, AST 79 H D, ALT 111 H, Alkaline Phosphatase 238 H, Total Protein 6.8, Albumin 3.6, Globulin 3.2, Albumin/Globulin Ratio 1.1 09/03/22 01:25: POC Glucose 197 H 09/03/22 06:10: WBC 15.8 H, RBC 3.24 L D, Hgb 9.4 L D, Hct 27.3 L, MCV 84.5, MCH 28.9, MCHC 34.3, RDW 14.0, Plt Count 448 H, MPV 8.7, Neut % (Auto) 87.2 H, Lymph % (Auto) 6.3 L, [place] % (Auto) 6.3, Eos % (Auto) 0.1, Baso % (Auto) 0.1, Neut # (Auto) 13.8 H, Lymph # (Auto) 1.0, [place] # (Auto) 1.0, Eos # (Auto) 0.0, Baso # (Auto) 0.0 09/03/22 06:10: Sodium 135 L, Potassium 4.2 D, Chloride 99, Carbon Dioxide 25, Anion Gap 15.2 H, BUN 17 D, Creatinine 1.60 H D, Estimated Creat Clear 69, Estimated GFR 49 L, Est GFR ( Amer) 59 D, Glucose 139 H D, Calcium 7.4 L, Magnesium 1.6, Total Bilirubin 1.1, AST 754 H* D, ALT 449 H*, Alkaline Phosphatase 154 H, Total Protein 5.5 L, Albumin 2.8 L D, Globulin 2.7, Albumin/Globulin Ratio 1.0 L I & O for Last 24 hours: Intake & Output 08/31/22 09/01/22 09/02/22 09/03/22 11:59 11:59 11:59 11:59 Intake Total 359 / 359 4799 / 4799 Output Total 250 / 250 560 / 560 Balance 109 / 109 4239 / 4239 Weight 301 lb 310 lb 3.2 oz *Routine Abdominal Exam Comments: Dressing is dry. Abdomen tender. Some serosanguineous drainage from ROSALINA. Progress Note: A&P Assessment and plan (1) Sepsis: Status: Acute (2) Acute cholecystitis: Status: Acute Assessment and plan: I will make the patient NPO. Continue to monitor. Bilirubin normal but LFTs elevated. Monitor for bleeding. (3) ADHD: Status: Chronic (4) Depression: Status: Chronic (5) Class 3 obesity: Status: Chronic
--- NOTE | 2022-09-03 08:29 | EXP.ACUTE.PN ---
Subjective *Date: 09/03/22 *Time: 17:01 Interval history: Patient surgery performed yesterday. Cholecystectomy transitioned from laparoscopic to open due to adhesions and severity of cholecystitis. Found to have focal necrosis of gallbladder with surrounding phlegmon. Has been tachycardic overnight requiring significant IV fluids and pain control. Tolerating p.o. fluids. No bowel movement today. Has not passed gas as of this morning. Continues to remain and moderate pain. No urine output as of lunchtime. No nausea or vomiting. Afebrile. Medical Exam Vital signs and Labs for Last 24 Hours: Vital Signs Temp Pulse Pulse Resp BP BP Pulse Ox 09/03/22 05:58 123 H 16 119/67 98 09/03/22 04:00 97.7 F 09/03/22 04:00 120 H 09/03/22 00:00 130 H 09/02/22 20:00 110 H 09/02/22 20:00 98 09/03/22 04:00 119 H 18 108/68 L 99 09/03/22 03:30 128 H 16 107/60 L 100 09/03/22 02:20 126 H 18 100/66 L 99 09/03/22 01:50 97.6 F 134 H 24 104/63 L 98 09/03/22 01:30 137 H 28 H 109/30 L 100 09/03/22 01:16 141 H 28 H 83/44 L 99 09/03/22 01:06 98.0 F 139 H 22 108/66 L 98 09/03/22 02:25 98.0 F 128 H 16 112/40 L 99 09/03/22 01:25 97.5 F L 137 H 28 H 109/30 L 100 09/03/22 00:25 97.6 F 137 H 20 117/74 98 09/02/22 23:25 97.9 F 130 H 18 131/89 96 09/02/22 22:25 98.3 F 119 H 18 91/67 L 95 09/02/22 21:55 98.5 F 115 H 18 102/70 L 98 09/02/22 21:25 98.3 F 110 H 18 140/93 H 96 09/02/22 20:55 98.5 F 109 H 18 133/83 95 09/02/22 20:25 98.1 F 108 H 20 132/89 95 09/02/22 20:10 98.6 F 111 H 20 130/85 97 09/02/22 19:55 98.5 F 111 H 20 148/94 H 95 09/02/22 19:40 98.7 F 110 H 16 148/86 H 94 L 09/02/22 19:35 98.8 F 111 H 16 130/95 H 94 L 09/02/22 19:25 109 H 16 131/97 H 94 L 09/02/22 19:15 110 H 16 122/93 H 93 L 09/02/22 19:05 110 H 16 122/93 H 93 L 09/02/22 18:55 111 H 16 130/97 H 93 L 09/02/22 19:25 16 09/02/22 18:45 98.6 F 115 H 16 157/97 H 93 L 09/02/22 12:00 90 09/02/22 11:34 98.3 F 99 H 14 127/78 94 L 09/02/22 18:56 98.6 F 115 H 16 157/97 H Intake and Output 09/02/22 09/03/22 09/03/22 23:59 07:59 15:59 Intake Total 2200 / 2337 2599 / 2599 Output Total 200 / 450 360 / 360 Balance 1999 / 1886 2239 / 2239 Intake: Intake, Oral Amount 100 / 100 Intake, Total IV Amount 2200 / 2337 2499 / 2499 0.9 % Sodium Chloride 1,000 ml 150 / 150 @ 150 mls/hr IV .Q6H40M STELLA Rx# :[id number] 0.9 % Sodium Chloride 500 ml @ 1999 / 1999 999 mls/hr IV .Q31M STELLA Rx#: [id number] Levofloxacin/D5w 750 mg/150 ml 150 / 150 750 mg In 150 ml @ 100 mls/hr IV Q24H STELLA Rx#:[id number] Metronidaz/Sod Chl 500 mg In 100 / 100 100 ml @ 100 mls/hr IV Q8H STELLA Rx#:[id number] Piperacillin/Tazo 3.375 gm In 0 99 / 99 .9 % Sodium Chloride 50 ml @ 100 mls/hr IV Q6H STELLA Rx#: [id number] Output: Output, Urine Amount 200 / 450 0 / 0 Output, Emesis Amount 300 / 300 Output, Gastric Drainage Amount 60 / 60 Right Upper Quadrant 60 / 60 Other: Number of Voids 0 Number of Unmeasured Voids 1 Weight 140.704 kg Patient Weight 09/03/22 23:59 Weight 140.704 kg Laboratory Results - last 24 hr 09/02/22 09:00: WBC 14.6 H, RBC 4.70, Hgb 13.4 L, Hct 39.5 L, MCV 84.0, MCH 28.3, MCHC 33.7, RDW 13.8, Plt Count 360, MPV 8.2, Neut % (Auto) 86.1 H, Lymph % (Auto) 7.6 L, [place] % (Auto) 4.5, Eos % (Auto) 1.7, Baso % (Auto) 0.1, Neut # (Auto) 12.6 H, Lymph # (Auto) 1.1, [place] # (Auto) 0.7, Eos # (Auto) 0.3, Baso # (Auto) 0.0, Total Counted 100, Neutrophils % (Manual) 88 H, Lymphocytes % (Manual) 8 L, Monocytes % (Manual) 4, Platelet Estimate Normal, RBC Morphology Normal 09/02/22 09:00: Sodium 135 L, Potassium 3.4 L
[2022-09-03 08:40] LABS: Lactic Acid 2.3 mmol/L (0.7-2.1)
[2022-09-03 08:45] LABS: Lymphocytes % 7 % (10-50); Monocytes % 5 % (2-9); Neutrophils % 88 % (42-76); Platelet Estimate Slight Increase; RBC Morphology Normal; Total Cells Counted 100
--- NOTE | 2022-09-03 08:50 | CT_ITS ---
FINAL REPORT CLINICAL HISTORY: POST GALLBLADDER SURGERY, DECREASE HEMOGLOBIN COMPARISON: September 01, 2022 FINDINGS: Post contrast axial imaging of the abdomen was obtained and reviewed. This study was performed with techniques to keep radiation doses as low as reasonably achievable (ALARA). Individualized dose reduction techniques using automated exposure control or adjustment of mA and/or kV according to the patient's size were employed. There is no evidence of aortic aneurysm. There is no evidence of aortic stenosis. The celiac axis, superior mesenteric artery and inferior mesenteric artery are patent without stenosis. There is no evidence of renal artery stenosis. The common iliac arteries are unremarkable. There is bibasilar atelectasis with small bilateral pleural effusions. There has been interval cholecystectomy. A right upper quadrant drain is present. There is fluid in the gallbladder fossa that could represent seroma, hematoma, or biloma. A small amount of pneumoperitoneum is likely postoperative. There is increased attenuation perihepatic fluid consistent with hemoperitoneum. This includes a collection medial to the liver measuring up to 6.4 x 4.0 cm. There is no evidence of contrast leak to suggest active hemorrhage. There is a moderate amount of free fluid elsewhere in the abdomen and pelvis. IMPRESSION: Interval cholecystectomy and right upper quadrant drain placement with fluid in the gallbladder fossa that may represent seroma, hematoma, or biloma. Hemoperitoneum including a 6 cm collection medial to the liver. No findings to suggest active hemorrhage. Moderate free fluid elsewhere in the abdomen and pelvis. Bibasilar atelectasis with small bilateral pleural effusions. Reviewed, Interpreted and Dictated by Kameron Wang III, MD Transcribed by Thomas Jara Authenticated and [facility]
--- NOTE | 2022-09-03 08:56 | EXP.ANES.II ---
[facility] Anesthesia Record Part II Anesthesia Record Part II Discharge Time: 19:35 Destination: Surgical Day Care (OP Surgery) PACU nurse assessment reviewed?: Yes Patient Condition:: Good Anesthesia Complications:: None Swallowing reflex intact?: Yes Cyanosis?: No Blood Pressure: 130/95 Pulse Rate: 111 Temperature: 98.8 F Mental Status: Alert & Oriented Pain level:: 3 Nausea and/or vomitting:: None Intake, IV Amount: 0
[2022-09-03 12:11] LABS: Hematocrit 25.5 % (42.0-52.0); Hemoglobin 8.7 g/dL (14.1-18.0)
[2022-09-03 12:26] LABS: Reflex Lactic Add Lactic Reflex
--- NOTE | 2022-09-03 14:06 | EXP.SURG.PN ---
Subjective Patient reports: no new complaints Exam Data for Last 24 hours Vital signs and Labs for Last 24 Hours: Temp Pulse Resp BP Pulse Ox 98.4 F 124 H 16 146/81 H 94 L 09/03/22 11:48 09/03/22 11:48 09/03/22 11:48 09/03/22 11:48 09/03/22 11:48 Laboratory Results - last 24 hr 09/03/22 01:25: POC Glucose 197 H 09/03/22 06:10: WBC 15.8 H, RBC 3.24 L D, Hgb 9.4 L D, Hct 27.3 L, MCV 84.5, MCH 28.9, MCHC 34.3, RDW 14.0, Plt Count 448 H, MPV 8.7, Neut % (Auto) 87.2 H, Lymph % (Auto) 6.3 L, [place] % (Auto) 6.3, Eos % (Auto) 0.1, Baso % (Auto) 0.1, Neut # (Auto) 13.8 H, Lymph # (Auto) 1.0, [place] # (Auto) 1.0, Eos # (Auto) 0.0, Baso # (Auto) 0.0, Total Counted 100, Neutrophils % (Manual) 88 H, Lymphocytes % (Manual) 7 L, Monocytes % (Manual) 5, Platelet Estimate Slight increase, RBC Morphology Normal 09/03/22 06:10: Sodium 135 L, Potassium 4.2 D, Chloride 99, Carbon Dioxide 25, Anion Gap 15.2 H, BUN 17 D, Creatinine 1.60 H D, Estimated Creat Clear 69, Estimated GFR 49 L, Est GFR ( Amer) 59 D, Glucose 139 H D, Calcium 7.4 L, Magnesium 1.6, Total Bilirubin 1.1, AST 754 H* D, ALT 449 H*, Alkaline Phosphatase 154 H, Total Protein 5.5 L, Albumin 2.8 L D, Globulin 2.7, Albumin/Globulin Ratio 1.0 L 09/03/22 06:10: Hemoglobin A1c 5.0 09/03/22 08:22: Lactate 2.3 H 09/03/22 12:00: Hgb 8.7 L, Hct 25.5 L I & O for Last 24 hours: Intake & Output 09/01/22 09/02/22 09/03/2222 11:59 11:59 11:59 11:59 Intake Total 359 / 359 4799 / 4799 120 / 120 Output Total 250 / 250 560 / 560 Balance 109 / 109 4239 / 4239 120 / 120 Weight 301 lb 310 lb 3.2 oz Microbiology Reports for the Last 24 Hours: Microbiology 09/01/22 16:45 Blood Blood Culture - Preliminary Progress Note: A&P Assessment and plan (1) Sepsis: Status: Acute (2) Acute cholecystitis: Status: Acute (3) ADHD: Status: Chronic (4) Depression: Status: Chronic (5) Class 3 obesity: Status: Chronic Assessment and Plan Assessment and Plan for All Diagnoses:: Given the findings of decreasing hemoglobin and elevation of transaminases postoperative I ordered a CT angiogram of the abdomen. I discussed this with the radiologist. This reveals some hemoperitoneum. There is no findings suggestive of active hemorrhage. No evidence of any portal vein or hepatic arterial injury. These findings are expected given the intraoperative findings. Plan will be to monitor hemoglobin hematocrit. He may need transfusion for equilibration. Monitor drain output. Continue antibiotics. Likely will have somewhat of an ileus due to the inflammation and blood.
[2022-09-03 14:45] LABS: Lactic Acid Follow Up (RFLX 1) 2.9 mmol/L (0.7-2.1)
[2022-09-03 16:29] LABS: Reflex Lactic (2 hrs) Add Lactic Reflex
[2022-09-03 18:00] LABS: Chloride 98 mmol/L (98-107); Sodium 136 mmol/L (136-145)
[2022-09-03 18:01] LABS: Potassium 3.5 mmoL/L (3.5-5.1)
[2022-09-03 18:03] LABS: Blood Urea Nitrogen 16 mg/dl (9-20); Creatinine Clearance Estimated 79 mL/min (50-200); Estimated Glomerular Filt Rate 57 ml/min (>60); GFR (African American) 69 ML/MIN (>60)
[2022-09-03 18:04] LABS: Anion Gap 20.5 mEq/L (5-15); Calcium 7.5 mg/dl (8.4-10.2); Carbon Dioxide 21 mmol/L (22.0-30.0); Glucose 169 mg/dl (74-100)
[2022-09-03 18:12] LABS: Lactic Acid Follow up (RFLX 2) 7.3 mmol/L (0.7-2.1)
--- NOTE | 2022-09-03 18:55 | PC.NURSE ---
PT IS RESTING IN BED. ALERT AND ORIENTED X4. MEDICATED PER MAR FOR PAIN AND NAUSEA. PT TOLERATED SITTING UP IN THE CHAIR FOR A COUPLE OF HOURS THIS AFTERNOON. LUNG SOUNDS CLEAR. CRITICAL LACTIC CALLED TO . LR BOLUS 500 ML'S/HR ORDERED. DRESSINGS TO THE ABDOMEN C/D/I. 25 ML'S DRAINAGE EMPTIED FROM ROSALINA DRAIN. WILL CONTINUE TO MONITOR.
[2022-09-03 18:56] LABS: Chloride 98 mmol/L (98-107); Potassium 3.6 mmoL/L (3.5-5.1); Sodium 138 mmol/L (136-145)
[2022-09-03 18:59] LABS: Albumin Level 2.7 g/dl (3.5-5.0); Alkaline Phosphatase 150 U/L (38-126); Anion Gap 21.6 mEq/L (5-15); Bilirubin,Total 0.7 mg/dl (0.2-1.3); Blood Urea Nitrogen 17 mg/dl (9-20); Calcium 7.4 mg/dl (8.4-10.2); Carbon Dioxide 22 mmol/L (22.0-30.0); Creatinine Clearance Estimated 85 mL/min (50-200); Estimated Glomerular Filt Rate 62 ml/min (>60); GFR (African American) 75 ML/MIN (>60); Globulin 2.7 g/dL (1.3-3.2); Glucose 169 mg/dl (74-100); Total Protein,Serum 5.4 g/dl (6.3-8.2)
[2022-09-03 19:06] LABS: Alanine Aminotransferase 861 U/L (12-78)
[2022-09-03 19:08] LABS: Aspartate Amino Transferase 1352 U/L (17-59)
--- NOTE | 2022-09-03 19:36 | PC.NURSE ---
LR INFUSING AT THIS TIME, VERIFIED WITH KAPIL BILLY RN. UNABLE TO DOCUMENT DUE TO PHYSICIAN IN CHART. NIGHT NURSE OSBALDO DEL CASTILLO NOTIFIED.
[2022-09-04] VITALS (48 sets, daily range): BP systolic 108–159; BP diastolic 59–90; PULSE 88–124; RESP 14–22; TEMP 36.1–37.2; O2SAT 89–99; BMI 43.2
--- NOTE | 2022-09-04 05:44 | PC.NURSE ---
pt A&OX4. medicated for pain and nausea per mar. no BMs this shift. pt reports passing flatus. dressings to surgical sites cdi, nelia drain notes, 120 mL drained this shift. CB in reach
--- NOTE | 2022-09-04 06:23 | EXP.SURG.PN ---
Subjective Patient reports: still having pain Narrative: Patient currently resting. Has had ongoing need for narcotics every 2 hours for pain. Exam Data for Last 24 hours Vital signs and Labs for Last 24 Hours: Temp Pulse Resp BP Pulse Ox 98.9 F 115 H 20 145/88 H 90 L 09/04/22 04:00 09/04/22 04:00 09/04/22 04:00 09/04/22 04:00 09/04/22 04:00 Laboratory Results - last 24 hr 09/03/22 06:10: WBC 15.8 H, RBC 3.24 L D, Hgb 9.4 L D, Hct 27.3 L, MCV 84.5, MCH 28.9, MCHC 34.3, RDW 14.0, Plt Count 448 H, MPV 8.7, Neut % (Auto) 87.2 H, Lymph % (Auto) 6.3 L, [place] % (Auto) 6.3, Eos % (Auto) 0.1, Baso % (Auto) 0.1, Neut # (Auto) 13.8 H, Lymph # (Auto) 1.0, [place] # (Auto) 1.0, Eos # (Auto) 0.0, Baso # (Auto) 0.0, Total Counted 100, Neutrophils % (Manual) 88 H, Lymphocytes % (Manual) 7 L, Monocytes % (Manual) 5, Platelet Estimate Slight increase, RBC Morphology Normal 09/03/22 06:10: Sodium 135 L, Potassium 4.2 D, Chloride 99, Carbon Dioxide 25, Anion Gap 15.2 H, BUN 17 D, Creatinine 1.60 H D, Estimated Creat Clear 69, Estimated GFR 49 L, Est GFR ( Amer) 59 D, Glucose 139 H D, Calcium 7.4 L, Magnesium 1.6, Total Bilirubin 1.1, AST 754 H* D, ALT 449 H*, Alkaline Phosphatase 154 H, Total Protein 5.5 L, Albumin 2.8 L D, Globulin 2.7, Albumin/Globulin Ratio 1.0 L 09/03/22 06:10: Hemoglobin A1c 5.0 09/03/22 08:22: Lactate 2.3 H 09/03/22 12:00: Hgb 8.7 L, Hct 25.5 L 09/03/22 14:25: Lactate 2.9 H 09/03/22 17:40: Lactate 7.3 H 09/03/22 17:40: Sodium 136, Potassium 3.5, Chloride 98, Carbon Dioxide 21 L, Anion Gap 20.5 H, BUN 16, Creatinine 1.40 H, Estimated Creat Clear 79, Estimated GFR 57 L, Est GFR ( Amer) 69, Glucose 169 H D, Calcium 7.5 L 09/03/22 17:40: Sodium 138, Potassium 3.6, Chloride 98, Carbon Dioxide 22, Anion Gap 21.6 H, BUN 17, Creatinine 1.30 H, Estimated Creat Clear 85, Estimated GFR 62, Est GFR ( Amer) 75, Glucose 169 H, Calcium 7.4 L, Total Bilirubin 0.7, AST 1352 H* D, ALT 861 H*, Alkaline Phosphatase 150 H, Total Protein 5.4 L, Albumin 2.7 L, Globulin 2.7, Albumin/Globulin Ratio 1.0 L I & O for Last 24 hours: Intake & Output 09/01/22 09/02/22 09/03/22 09/04/22 11:59 11:59 11:59 11:59 Intake Total 359 / 359 4799 / 4799 410 / 410 Output Total 250 / 250 560 / 560 425 / 425 Balance 109 / 109 4239 / 4239 -15 / -15 Weight 301 lb 310 lb 3.2 oz 319 lb 1.6 oz Microbiology Reports for the Last 24 Hours: Microbiology 09/01/22 16:45 Blood Blood Culture - Preliminary NO GROWTH AFTER 48 HOURS 09/01/22 16:45 Blood Blood Culture - Preliminary Constitutional Constitutional: no acute distress Progress Note: A&P Assessment and plan (1) Sepsis: Status: Acute (2) Transaminitis: Status: Acute (3) Acute cholecystitis: Status: Acute Assessment and plan: Labs pending. Continue antibiotics. Limited diet. We will check back later. (4) Class 3 obesity: Status: Chronic (5) OSMAN (acute kidney injury): Status: Acute
[2022-09-04 07:12] LABS: Alanine Aminotransferase 640 U/L (12-78); Albumin Level 2.6 g/dl (3.5-5.0); Alkaline Phosphatase 151 U/L (38-126); Anion Gap 13.7 mEq/L (5-15); Aspartate Amino Transferase 724 U/L (17-59); Bilirubin,Total 0.6 mg/dl (0.2-1.3); Blood Urea Nitrogen 14 mg/dl (9-20); Calcium 7.1 mg/dl (8.4-10.2); Carbon Dioxide 27 mmol/L (22.0-30.0); Chloride 99 mmol/L (98-107); Creatinine Clearance Estimated 122 mL/min (50-200); Estimated Glomerular Filt Rate 94 ml/min (>60); GFR (African American) 114 ML/MIN (>60); Globulin 2.6 g/dL (1.3-3.2); Glucose 119 mg/dl (74-100); Magnesium 1.6 mg/dl (1.6-2.3); Potassium 3.7 mmoL/L (3.5-5.1); Sodium 136 mmol/L (136-145); Total Protein,Serum 5.2 g/dl (6.3-8.2)
[2022-09-04 07:15] LABS: INR 1.22 (0.9-1.1)
[2022-09-04 07:21] LABS: Basophils % 0.2 % (0.1-2.0); Eosinophils % 0.1 % (0.1-12.0); Lymphocytes # 1.8 K/mm3 (0.7-4.5); Lymphocytes % 13.8 % (10-50); Mean Corpuscular HGB Conc 33.5 g/dL (31.8-35.4); Mean Corpuscular Hemoglobin 28.3 pg (27.0-31.2); Mean Corpuscular Volume 84.5 fl (80-94); Mean Platelet Volume 8.1 fl (7.4-10.4); Monocytes # 0.7 K/mm3 (0.1-1.0); Neutrophils # 10.5 K/mm3 (1.8-7.8); Neutrophils % 80.8 % (37.0-80.0); Platelet Count 443 K/mm3 (142-424); Red Blood Count 2.22 M/mm3 (4.60-6.20); Red Cell Distribution Width 14.3 % (11.5-17.5)
[2022-09-04 07:24] LABS: Hematocrit 18.8 % (42.0-52.0)
--- NOTE | 2022-09-04 07:30 | PC.NURSE ---
this nurse and a tech assisted pt up to go to the bathroom, upon standing pt he stated he felt like something had popped. we noticed a large amount of bright red blood on the sheets. i asked another nurse for assistance. charge nurse was made aware and Dr Ayala was paged. when he arrived pt was sitting on side of bed. pt was ambulated to the bathroom with assistance X2, pt became very weak and needed wheelchair assistance back to bed. sheets were soaked with blood, 295 mls was drained from nelia drain. Dr ayala stripped the nelia tubing and changed dressing surrounding nelia drain, some bloody drainage noted to the new dressing. pt stated he was having some discomfort but no more pain than he had been having.
[2022-09-04 07:33] LABS: Hemoglobin 6.3 g/dL (14.1-18.0)
--- NOTE | 2022-09-04 08:06 | PC.NURSE ---
lab called to report critical H&H og 6.[address] spencer mad aware, ordered to do type and cross and give 3 units of blood.
--- NOTE | 2022-09-04 08:12 | EXP.SURG.PN ---
Subjective Narrative: Patient was getting up to go to the bathroom. Called by nursing staff to evaluate patient due to some significant bleeding around the drain site. Exam Data for Last 24 hours Vital signs and Labs for Last 24 Hours: Temp Pulse Resp BP Pulse Ox 98.9 F 115 H 20 145/88 H 90 L 09/04/22 04:00 09/04/22 04:00 09/04/22 04:00 09/04/22 04:00 09/04/22 04:00 Laboratory Results - last 24 hr 09/03/22 06:10: Total Counted 100, Neutrophils % (Manual) 88 H, Lymphocytes % (Manual) 7 L, Monocytes % (Manual) 5, Platelet Estimate Slight increase, RBC Morphology Normal 09/03/22 06:10: Hemoglobin A1c 5.0 09/03/22 08:22: Lactate 2.3 H 09/03/22 12:00: Hgb 8.7 L, Hct 25.5 L 09/03/22 14:25: Lactate 2.9 H 09/03/22 17:40: Lactate 7.3 H 09/03/22 17:40: Sodium 136, Potassium 3.5, Chloride 98, Carbon Dioxide 21 L, Anion Gap 20.5 H, BUN 16, Creatinine 1.40 H, Estimated Creat Clear 79, Estimated GFR 57 L, Est GFR ( Amer) 69, Glucose 169 H D, Calcium 7.5 L 09/03/22 17:40: Sodium 138, Potassium 3.6, Chloride 98, Carbon Dioxide 22, Anion Gap 21.6 H, BUN 17, Creatinine 1.30 H, Estimated Creat Clear 85, Estimated GFR 62, Est GFR ( Amer) 75, Glucose 169 H, Calcium 7.4 L, Total Bilirubin 0.7, AST 1352 H* D, ALT 861 H*, Alkaline Phosphatase 150 H, Total Protein 5.4 L, Albumin 2.7 L, Globulin 2.7, Albumin/Globulin Ratio 1.0 L 09/04/22 06:50: WBC 13.0 H, RBC 2.22 L D, Hgb 6.3 L* D, Hct 18.8 L*, MCV 84.5, MCH 28.3, MCHC 33.5, RDW 14.3, Plt Count 443 H, MPV 8.1, Neut % (Auto) 80.8 H, Lymph % (Auto) 13.8, [place] % (Auto) 5.0, Eos % (Auto) 0.1, Baso % (Auto) 0.2, Neut # (Auto) 10.5 H, Lymph # (Auto) 1.8, [place] # (Auto) 0.7, Eos # (Auto) 0.0, Baso # (Auto) 0.0 09/04/22 06:50: Sodium 136, Potassium 3.7, Chloride 99, Carbon Dioxide 27, Anion Gap 13.7, BUN 14, Creatinine 0.90 D, Estimated Creat Clear 122, Estimated GFR 94, Est GFR ( Amer) 114 D, Glucose 119 H D, Calcium 7.1 L, Magnesium 1.6, Total Bilirubin 0.6, AST 724 H* D, ALT 640 H*, Alkaline Phosphatase 151 H, Total Protein 5.2 L, Albumin 2.6 L, Globulin 2.6, Albumin/Globulin Ratio 1.0 L 09/04/22 06:50: PT 13.0 H, INR 1.22 H I & O for Last 24 hours: Intake & Output 09/01/22 09/02/22 09/03/22 09/04/22 11:59 11:59 11:59 11:59 Intake Total 359 / 359 4799 / 4799 410 / 410 Output Total 250 / 250 560 / 560 425 / 425 Balance 109 / 109 4239 / 4239 -15 / -15 Weight 301 lb 310 lb 3.2 oz 319 lb 1.6 oz Microbiology Reports for the Last 24 Hours: Microbiology 09/01/22 16:45 Blood Blood Culture - Preliminary NO GROWTH AFTER 48 HOURS 09/01/22 16:45 Blood Blood Culture - Preliminary *Routine Abdominal Exam Comments: Incisions clean and intact. Appreciable amount of dark drainage from the ROSALINA drain with stripping. Progress Note: A&P Assessment and plan (1) Sepsis: Status: Acute (2) Transaminitis: Status: Acute (3) Acute cholecystitis: Status: Acute Assessment and plan: Patient has shown some decrease in hemoglobin this morning. It is unclear if he has any ongoing bleeding. CT angiogram yesterday suggested otherwise with significant amount of old blood around the gallbladder fossa and liver. He will need transfusion. Assess response to transfusion and hemoglobin stability. If suboptimal response could require return to the OR for bleeding. (4) Class 3 obesity: Status: Chronic (5) OSMAN (acute kidney injury): Status: Acute
--- NOTE | 2022-09-04 11:39 | EXP.ACUTE.PN ---
Subjective *Date: 09/04/22 *Time: 19:07 Interval history: Patient clinically appeared better this morning. Continues to complain of abdominal pain. Passing gas overnight and belching. Remains afebrile. Reviewed labs, improvement in kidney function and LFTs. Unfortunately his hemoglobin has dropped significantly. Having significant blood output in his ROSALINA drain. Discussed transfusion with him this morning. Remains on room air. No chest pain. Complaining of hiccups. No bowel movements as of yet Medical Exam Vital signs and Labs for Last 24 Hours: Vital Signs Temp Pulse Pulse Resp BP BP Pulse Ox 09/04/22 11:05 98.1 F 108 H 18 127/76 96 09/04/22 10:50 98.2 F 115 H 18 132/78 95 09/04/22 10:35 98.1 F 118 H 19 154/68 H 95 09/04/22 10:30 98.0 F 120 H 19 150/69 H 94 L 09/04/22 10:25 98.2 F 113 H 18 142/75 H 95 09/04/22 10:20 98.6 F 115 H 17 141/72 H 94 L 09/04/22 09:52 98.5 F 115 H 18 143/80 H 90 L 09/04/22 08:00 98.6 F 116 H 20 121/70 91 L 09/04/22 04:00 98.9 F 115 H 20 145/88 H 90 L 09/04/22 04:00 100 H 09/04/22 00:00 120 H 09/03/22 20:00 110 H 09/04/22 00:00 98.6 F 123 H 20 149/80 H 96 09/03/22 20:00 97.8 F 120 H 20 123/55 L 97 09/03/22 16:00 138 H 09/03/22 12:00 125 H 09/03/22 15:20 98.4 F 126 H 16 138/83 91 L 09/03/22 11:48 98.4 F 124 H 16 146/81 H 94 L Intake and Output 09/03/22 09/04/22 09/04/22 23:59 07:59 15:59 Intake Total 240 / 3009 50 / 50 0 / 50 Output Total 425 / 785 0 / 0 Balance -185 / 2224 50 / 50 0 / 50 Intake: Intake, Oral Amount 240 / 510 50 / 50 Intake (Blood Product) Amt 0 / 0 Red Blood Cells Unit 0 / 0 [id number] Output: Output, Urine Amount 425 / 425 0 / 0 Other: Number of Voids 0 Number of Unmeasured Voids 2 Weight 144.741 kg Patient Weight 09/04/22 23:59 Weight 144.741 kg Laboratory Results - last 24 hr 09/03/22 12:00: Hgb 8.7 L, Hct 25.5 L 09/03/22 14:25: Lactate 2.9 H 09/03/22 17:40: Lactate 7.3 H 09/03/22 17:40: Sodium 136, Potassium 3.5, Chloride 98, Carbon Dioxide 21 L, Anion Gap 20.5 H, BUN 16, Creatinine 1.40 H, Estimated Creat Clear 79, Estimated GFR 57 L, Est GFR ( Amer) 69, Glucose 169 H D, Calcium 7.5 L 09/03/22 17:40: Sodium 138, Potassium 3.6, Chloride 98, Carbon Dioxide 22, Anion Gap 21.6 H, BUN 17, Creatinine 1.30 H, Estimated Creat Clear 85, Estimated GFR 62, Est GFR ( Amer) 75, Glucose 169 H, Calcium 7.4 L, Total Bilirubin 0.7, AST 1352 H* D, ALT 861 H*, Alkaline Phosphatase 150 H, Total Protein 5.4 L, Albumin 2.7 L, Globulin 2.7, Albumin/Globulin Ratio 1.0 L 09/04/22 06:50: WBC 13.0 H, RBC 2.22 L D, Hgb 6.3 L* D, Hct 18.8 L*, MCV 84.5, MCH 28.3, MCHC 33.5, RDW 14.3, Plt Count 443 H, MPV 8.1, Neut % (Auto) 80.8 H, Lymph % (Auto) 13.8, [place] % (Auto) 5.0, Eos % (Auto) 0.1, Baso % (Auto) 0.2, Neut # (Auto) 10.5 H, Lymph # (Auto) 1.8, [place] # (Auto) 0.7, Eos # (Auto) 0.0, Baso # (Auto) 0.0 09/04/22 06:50: Sodium 136, Potassium 3.7, Chloride 99, Carbon Dioxide 27, Anion Gap 13.7, BUN 14, Creatinine 0.90 D, Estimated Creat Clear 122, Estimated GFR 94, Est GFR ( Amer) 114 D, Glucose 119 H D, Calcium 7.1 L, Magnesium 1.6, Total Bilirubin 0.6, AST 724 H* D, ALT 640 H*, Alkaline Phosphatase 151 H, Total Protein 5.2 L, Albumin 2.6 L, Globulin 2.6, Albumin/Globulin Ratio 1.0 L 09/04/22 06:50: PT 13.0 H, INR 1.22 H 09/04/22 06:50: Blood Type Confirm O Positive 09/04/22 08:34: Blood Type O Positive, Antibody Screen Negative, Crossmatch ([facility]) See Detail I & O for Labs for Last 24 Hours: Intake & Output 09/01/22 09/02/22 09/03/22 09/04/22 23:59 23:59 23:59 23:59 Intake Total 222 / 222 2337 / 2337 2959 / 3009 50 / 50 Output Total 0 / 0 450 / 450 785 / 785 0 / 0 Balance 222 / 222 1887 / 1887 2174 / 2224 50 / 50 Weight 136.803 kg 136.531 kg 140.704 kg 144.741 kg Microbiology Repor
--- NOTE | 2022-09-04 13:40 | EXP.SURG.PN ---
Subjective Patient reports: no new complaints Exam Data for Last 24 hours Vital signs and Labs for Last 24 Hours: Temp Pulse Resp BP Pulse Ox 98.3 F 101 H 18 135/71 96 09/04/22 12:55 09/04/22 12:55 09/04/22 12:55 09/04/22 12:55 09/04/22 12:55 Laboratory Results - last 24 hr 09/03/22 14:25: Lactate 2.9 H 09/03/22 17:40: Lactate 7.3 H 09/03/22 17:40: Sodium 136, Potassium 3.5, Chloride 98, Carbon Dioxide 21 L, Anion Gap 20.5 H, BUN 16, Creatinine 1.40 H, Estimated Creat Clear 79, Estimated GFR 57 L, Est GFR ( Amer) 69, Glucose 169 H D, Calcium 7.5 L 09/03/22 17:40: Sodium 138, Potassium 3.6, Chloride 98, Carbon Dioxide 22, Anion Gap 21.6 H, BUN 17, Creatinine 1.30 H, Estimated Creat Clear 85, Estimated GFR 62, Est GFR ( Amer) 75, Glucose 169 H, Calcium 7.4 L, Total Bilirubin 0.7, AST 1352 H* D, ALT 861 H*, Alkaline Phosphatase 150 H, Total Protein 5.4 L, Albumin 2.7 L, Globulin 2.7, Albumin/Globulin Ratio 1.0 L 09/04/22 06:50: WBC 13.0 H, RBC 2.22 L D, Hgb 6.3 L* D, Hct 18.8 L*, MCV 84.5, MCH 28.3, MCHC 33.5, RDW 14.3, Plt Count 443 H, MPV 8.1, Neut % (Auto) 80.8 H, Lymph % (Auto) 13.8, [place] % (Auto) 5.0, Eos % (Auto) 0.1, Baso % (Auto) 0.2, Neut # (Auto) 10.5 H, Lymph # (Auto) 1.8, [place] # (Auto) 0.7, Eos # (Auto) 0.0, Baso # (Auto) 0.0 09/04/22 06:50: Sodium 136, Potassium 3.7, Chloride 99, Carbon Dioxide 27, Anion Gap 13.7, BUN 14, Creatinine 0.90 D, Estimated Creat Clear 122, Estimated GFR 94, Est GFR ( Amer) 114 D, Glucose 119 H D, Calcium 7.1 L, Magnesium 1.6, Total Bilirubin 0.6, AST 724 H* D, ALT 640 H*, Alkaline Phosphatase 151 H, Total Protein 5.2 L, Albumin 2.6 L, Globulin 2.6, Albumin/Globulin Ratio 1.0 L 09/04/22 06:50: PT 13.0 H, INR 1.22 H 09/04/22 06:50: Blood Type Confirm O Positive 09/04/22 08:34: Blood Type O Positive, Antibody Screen Negative, Crossmatch ([facility]) See Detail I & O for Last 24 hours: Intake & Output 09/02/22 09/03/22 09/04/22 09/05/22 11:59 11:59 11:59 11:59 Intake Total 359 / 359 4799 / 4799 410 / 410 278.87 / 278.87 Output Total 250 / 250 560 / 560 425 / 425 Balance 109 / 109 4239 / 4239 -15 / -15 278.87 / 278.87 Weight 301 lb 310 lb 3.2 oz 319 lb 1.6 oz Microbiology Reports for the Last 24 Hours: Microbiology 09/01/22 16:45 Blood Blood Culture - Preliminary NO GROWTH AFTER 48 HOURS Constitutional Constitutional: no acute distress Progress Note: A&P Assessment and plan (1) Sepsis: Status: Acute (2) Transaminitis: Status: Acute (3) Acute cholecystitis: Status: Acute Assessment and plan: Patient currently receiving transfusion packed red blood cells. He is to get a posttransfusion H&H after 2 units. If he shows appropriate response and stability this may be old blood without active hemorrhage. However, if he shows suboptimal response may plan for return to the operating room with reopening of laparotomy this afternoon. (4) Class 3 obesity: Status: Chronic (5) OSMAN (acute kidney injury): Status: Acute
--- NOTE | 2022-09-04 15:00 | PC.NURSE ---
1413- Pt tolerated both units of PRBC's well. VSS. No s/s of blood transfusion reaction noted. Post H/H entered into cpu and will be collected at [id number]
[2022-09-04 16:45] LABS: Hematocrit 22.8 % (42.0-52.0)
[2022-09-04 16:54] LABS: Hemoglobin 7.5 g/dL (14.1-18.0)
--- NOTE | 2022-09-04 18:17 | PC.NURSE ---
1635-notified MD Ayala of pt post transfusion H/H. wants to take pt to OR 1636- MD Hamlin notified 1637- Pt prepped for surgery 1700- pt taken down to surgery by Vero Wong RN
--- NOTE | 2022-09-04 18:20 | PC.NURSE ---
Pt has had over 150cc's of sanguineous drainage noted to nelia drain this shift. NELIA drain dressing required changing x4 times this shift d/t being saturated. Due to low saturations while asleep, pt was placed on 2LNC. PRN dilaudid given multiple times this shift. Pt requesting medication for hiccups, MD Hamlin notified, orders placed. Pt went to the OR before this RN could give him PRN meds for hiccups. Urine this shift has been cloudy and dark bhavani with a very strong odor. NO BM noted this shift. has remained at bedside.
--- NOTE | 2022-09-04 18:59 | EXP.OP.NOTE ---
Date of procedure: 09/04/22 Pre-op Diagnosis:: Possible postoperative bleeding Post-op Diagnosis:: Same Procedure performed:: Reopening of recent laparotomy for bleeding. Surgeon:: Kameron Ayala MD Senior Adults Director(s):: Saad Calero MD METAL INSPECTOR:: Bran Dobbins Anesthesia: GETA Estimated blood loss (mL): 300 Operative findings:: There was a moderate amount of clot around the liver and in the gallbladder fossa. No evidence of any obvious active bleeding. Operative note:: Patient was taken emergently to the operating room. He was placed in a supine position. General anesthesia was induced via endotracheal tube. Please note that previously placed ROSALINA drain was removed. Diehl catheter was placed. His abdomen was prepped and draped in the standard surgical fashion. Skin ryan were removed from the right upper quadrant incision. There was some seroma present which was evacuated. Fascial layers were then opened removing suture. There was some blood clot noted which was evacuated within the abdominal cavity. Exposure was achieved. There was some old clotted blood over the right lobe of the liver which was evacuated. Exposure was achieved of the gallbladder fossa and any blood clot was evacuated. Ultimately once all clot was evacuated there was not noted to be any obvious bleeding. Several minutes were allowed to elapse to allow for any blood to pool if there was any active bleeding and none was noted. Gallbladder fossa and abdominal cavity was then thoroughly irrigated with saline. Some limited use of irrigation with warm sterile water was used to assess for any bleeding and none was noted. A new 10 mm ROSALINA drain was placed through the right lateral 5 mm incision and placed into the gallbladder fossa and along the maximo hepatis. It was secured with a 2-0 nylon horizontal mattress suture. Gelfoam was placed within the gallbladder fossa and observed for some time for hemostasis which was assured. Fascia was then closed in layers with a #1 looped PDS x2. Hemostasis was achieved of subcutaneous tissues. Skin was closed with ryan. Clean dry sterile dressing was applied. Condition: stable Disposition: PACU Complications:: None immediately apparent
--- NOTE | 2022-09-04 19:05 | EXP.ANES.I ---
[facility] Anesthesia Record Part I Anesthesia Record I Intake, IV Amount: 1,500 Estimated blood loss (mL): 300 Urine output (mL): 1,400 Blood Pressure: 159/90 SaO2: 94 Pulse Rate: 109 Respiratory Rate: 14 Temperature: 98 F Patient is:: Awake and Stable Stable to PACU at:: 19:00
[2022-09-04 19:17] LABS: Microscopic,Cath URINE MICROSCOPIC (MICROSCOPIC)
--- NOTE | 2022-09-04 19:39 | PC.NURSE ---
pt back to floor from OR
[2022-09-04 19:43] LABS: Appearance,Urine/Cath SL CLOUDY (Clear); Bilirubin,Cath Negative (Negative); Blood, Urine/Cath 1+ (Negative); Color,Urine/Cath YELLOW (Yellow); Glucose,Urine/Cath (UA) Negative (Negative); Ketones,Urine/Cath TRACE (Negative); Leukocyte Esterase,Cath Negative (Negative); Nitrate,Cath Negative (Negative); Protein,Urine/Cath TRACE (Negative)
[2022-09-04 19:57] LABS: Bacteria,Urine/Cath TRACE /lpf; WBC,Urine/Cath Occasional #/hpf (0-3)
--- NOTE | 2022-09-04 20:03 | PC.NURSE ---
1933-detailed report called to MAGDALENE Harris, pt continues to doze off to sleep but will arouse to stimuli, reports pain easing some, teresa alvarez stable 1935-pt transported to 2nd floor via hospital bed w/chikis rails up and left in care of MAGDALENE Harris, at bedside, teresa alvarez
[2022-09-05] VITALS (8 sets, daily range): BP systolic 101–140; BP diastolic 49–72; PULSE 70–100; RESP 16–20; TEMP 36.6–36.9; O2SAT 90–97; BMI 43.5
--- NOTE | 2022-09-05 00:16 | PC.NURSE ---
found urinal in patient room
--- NOTE | 2022-09-05 00:38 | PC.NURSE ---
confirmed with lee shane performance test engineer, post transfusion h/h can be drawn in am with am labs, cancel 2 hour h/h post transfusion, repeated and verified.
--- NOTE | 2022-09-05 06:15 | PC.NURSE ---
pt post op expl lap through same incision site from open cholecystectomy, right side abd dressing cdi, j/p to right abd with dressing intact around site, 110ml of brownish bile colored drainage noted, umbilical ryan intact and open to air, 1unit PRBC's infused, h/h to be drawn this am per orders from hospitalist OG Truong post op, telemetry sinus to sinus tach with prolonged qt, generalized edema 1+. pt has increased in weight since yesterday, no acute distress, pt voiding without difficulty, pt pain tolerable with prescribed iv dilaudid. no acute distress. pt is alert and oriented x4, skin pwd.
[2022-09-05 06:56] LABS: Basophils % 0.2 % (0.1-2.0); Eosinophils # 0.1 K/mm3 (0.0-0.4); Eosinophils % 0.3 % (0.1-12.0); Hematocrit 22.6 % (42.0-52.0); Hemoglobin 7.4 g/dL (14.1-18.0); Lymphocytes # 1.2 K/mm3 (0.7-4.5); Lymphocytes % 8.5 % (10-50); Mean Corpuscular HGB Conc 32.9 g/dL (31.8-35.4); Mean Corpuscular Hemoglobin 27.8 pg (27.0-31.2); Mean Corpuscular Volume 84.4 fl (80-94); Mean Platelet Volume 7.8 fl (7.4-10.4); Monocytes # 0.4 K/mm3 (0.1-1.0); Monocytes % 3.1 % (1.7-9.3); Neutrophils # 12.6 K/mm3 (1.8-7.8); Platelet Count 395 K/mm3 (142-424); Red Blood Count 2.67 M/mm3 (4.60-6.20); Red Cell Distribution Width 14.6 % (11.5-17.5); White Blood Count 14.3 K/mm3 (4.8-10.8)
[2022-09-05 06:58] LABS: MANUAL DIFFERENTIAL MANUAL DIFFERENTIAL (MANUAL DIFF)
[2022-09-05 07:04] LABS: Albumin Level 2.5 g/dl (3.5-5.0); Alkaline Phosphatase 136 U/L (38-126); Anion Gap 11.9 mEq/L (5-15); Bilirubin,Total 0.7 mg/dl (0.2-1.3); Blood Urea Nitrogen 11 mg/dl (9-20); Calcium 7.2 mg/dl (8.4-10.2); Carbon Dioxide 28 mmol/L (22.0-30.0); Chloride 99 mmol/L (98-107); Creatinine Clearance Estimated 157 mL/min (50-200); Estimated Glomerular Filt Rate 126 ml/min (>60); GFR (African American) 153 ML/MIN (>60); Globulin 2.6 g/dL (1.3-3.2); Glucose 121 mg/dl (74-100); Magnesium 1.8 mg/dl (1.6-2.3); Potassium 3.9 mmoL/L (3.5-5.1); Sodium 135 mmol/L (136-145); Total Protein,Serum 5.1 g/dl (6.3-8.2)
[2022-09-05 07:11] LABS: Alanine Aminotransferase 856 U/L (12-78)
[2022-09-05 07:12] LABS: Aspartate Amino Transferase 934 U/L (17-59)
[2022-09-05 07:41] LABS: Lymphocytes % 12 % (10-50); Monocytes % 5 % (2-9); Neutrophils % 83 % (42-76); Total Cells Counted 100
[2022-09-05 07:42] LABS: Platelet Estimate Slight Increase; RBC Morphology Normal
--- NOTE | 2022-09-05 07:47 | EXP.SURG.PN ---
Subjective Patient reports: no new complaints Narrative: He does have moderate pain at his incision sites Exam Data for Last 24 hours Vital signs and Labs for Last 24 Hours: Temp Pulse Resp BP Pulse Ox 98.4 F 94 H 20 106/62 L 96 09/05/22 04:00 09/05/22 04:00 09/05/22 04:00 09/05/22 04:00 09/05/22 04:00 Laboratory Results - last 24 hr 09/04/22 06:50: Blood Type Confirm O Positive 09/04/22 08:34: Blood Type O Positive, Antibody Screen Negative, Crossmatch ([facility]) See Detail 09/04/22 16:15: Hgb 7.5 L D, Hct 22.8 L 09/04/22 17:40: Urine Color Yellow, Urine Appearance Sl cloudy, Urine pH 6.0, Ur Specific [place] 1.020, Urine Protein Trace, Urine Glucose (UA) Negative, Urine Ketones Trace, Urine Blood 1+, Urine Nitrate Negative, Urine Bilirubin Negative, Urine Urobilinogen 2.0, Ur Leukocyte Esterase Negative, Urine RBC None, Urine WBC Occasional, Ur Squamous Epith Cells None, Urine Bacteria Trace 09/05/22 06:33: WBC 14.3 H, RBC 2.67 L, Hgb 7.4 L, Hct 22.6 L, MCV 84.4, MCH 27.8, MCHC 32.9, RDW 14.6, Plt Count 395, MPV 7.8, Neut % (Auto) 88.0 H, Lymph % (Auto) 8.5 L, [place] % (Auto) 3.1, Eos % (Auto) 0.3, Baso % (Auto) 0.2, Neut # (Auto) 12.6 H, Lymph # (Auto) 1.2, [place] # (Auto) 0.4, Eos # (Auto) 0.1, Baso # (Auto) 0.0, Total Counted 100, Neutrophils % (Manual) 83 H, Lymphocytes % (Manual) 12, Monocytes % (Manual) 5, Platelet Estimate Slight increase, RBC Morphology Normal 09/05/22 06:33: Sodium 135 L, Potassium 3.9, Chloride 99, Carbon Dioxide 28, Anion Gap 11.9, BUN 11, Creatinine 0.70 D, Estimated Creat Clear 157, Estimated GFR 126, Est GFR ( Amer) 153 D, Glucose 121 H, Calcium 7.2 L, Magnesium 1.8 D, Total Bilirubin 0.7, AST 934 H* D, ALT 856 H*, Alkaline Phosphatase 136 H, Total Protein 5.1 L, Albumin 2.5 L, Globulin 2.6, Albumin/Globulin Ratio 1.0 L I & O for Last 24 hours: Intake & Output 09/02/22 09/03/22 09/04/22 09/05/22 11:59 11:59 11:59 11:59 Intake Total 359 / 359 4799 / 4799 410 / 410 3410.89 / 3410.89 Output Total 250 / 250 560 / 560 590 / 590 1285 / 1285 Balance 109 / 109 4239 / 4239 -180 / -180 2125.89 / 2125.89 Weight 301 lb 310 lb 3.2 oz 319 lb 1.6 oz 321 lb 6.4 oz Narrative: Transfusion of 3rd unit PRBCs last evening. HGB 7.4 this AM. Constitutional Constitutional: no acute distress *Routine Respiratory Exam Respiratory: Absent respiratory distress *Routine Cardiovascular Exam Cardiovascular: Present RRR Comments: Currently not tachycardic *Routine Abdominal Exam Comments: Dressings intact. No spreading cellulitis. Postoperative tenderness as expected. Progress Note: A&P Assessment and plan (1) Acute blood loss anemia: Problem details: Reopen laparotomy findings: There was a moderate amount of clot around the liver and in the gallbladder fossa. No evidence of any obvious active bleeding. Status: Acute Assessment and plan: Serial hemoglobin/hematocrit (repeat ordered per Hospitalist Service for 16:00 today (2) Acute cholecystitis: Status: Acute Assessment and plan: Continue to slowly improve status post cholecystectomy. Slowly increase ambulation as tolerated (3) Transaminitis: Status: Acute
--- NOTE | 2022-09-05 11:02 | EXP.ACUTE.PN ---
Subjective *Date: 09/05/22 *Time: 11:02 Interval history: Patient continues to complain of abdominal pain though better. Reviewed hemodynamics overnight, heart rate still around 100 but blood pressure stable. No fevers. Continuing to have belching but no gas overnight. Taken back to the OR yesterday evening due to continued blood loss. No active bleeding noted but did have old blood in abdomen. Region was evacuated. Hemoglobin stable this morning on labs at 7.5. Has received 3 units packed red blood cells in total. Voiding independently, no bowel movements since surgery. Denies any flatus overnight. Has had some intermittent nausea and hiccups that respond to Phenergan. No shortness of breath or chest pain. Medical Exam Vital signs and Labs for Last 24 Hours: Vital Signs Temp Pulse Pulse Resp BP BP Pulse Ox 09/05/22 08:00 98.1 F 92 H 20 140/72 90 L 09/05/22 04:00 100 H 09/05/22 04:00 98.4 F 94 H 20 106/62 L 96 09/05/22 00:00 90 09/04/22 20:00 95 H 09/05/22 01:45 98.5 F 85 16 116/62 94 L 09/05/22 01:00 98.5 F 90 16 108/56 L 91 L 09/05/22 01:00 98.5 F 90 16 108/56 L 91 L 09/04/22 20:00 92 L 09/05/22 00:00 98 F 98 H 18 126/70 95 09/04/22 22:45 98.4 F 89 16 112/60 93 L 09/04/22 22:15 98.5 F 92 H 16 124/62 93 L 09/04/22 21:45 100 H 16 121/68 93 L 09/04/22 21:15 97.9 F 92 H 16 114/64 91 L 09/04/22 20:45 95 H 16 116/65 91 L 09/04/22 20:30 99 H 16 121/65 92 L 09/04/22 20:15 99 H 16 125/70 92 L 09/04/22 20:00 100 H 16 120/64 90 L 09/04/22 19:45 97.0 F L 104 H 16 129/67 90 L 09/05/22 00:00 98 F 98 H 18 126/70 95 09/04/22 23:10 98.2 F 88 16 112/61 93 L 09/04/22 22:55 98.2 F 92 H 18 123/59 L 95 09/04/22 22:40 98.4 F 89 16 112/60 93 L 09/04/22 22:25 98.6 F 92 H 16 119/66 93 L 09/04/22 22:20 98.1 F 92 H 16 112/70 92 L 09/04/22 22:10 98.2 F 92 H 108/64 L 93 L 09/04/22 22:15 98.5 F 92 H 16 124/62 93 L 09/04/22 22:00 98.2 F 90 16 118/67 93 L 09/04/22 19:30 98.1 F 102 H 20 139/74 92 L 09/04/22 19:20 108 H 18 132/76 94 L 09/04/22 16:00 99 H 09/04/22 12:00 109 H 09/04/22 19:10 107 H 20 141/80 H 93 L 09/04/22 19:28 22 09/04/22 19:23 18 09/04/22 19:15 20 09/04/22 19:00 98.0 F 112 H 14 159/90 H 91 L 09/04/22 19:10 20 09/04/22 16:00 98.4 F 102 H 20 139/77 98 09/04/22 15:33 98.1 F 110 H 18 122/68 94 L 09/04/22 14:13 98.2 F 101 H 18 147/73 H 93 L 09/04/22 13:40 98.3 F 104 H 18 150/65 H 94 L 09/04/22 13:25 98.3 F 104 H 17 138/75 96 09/04/22 13:10 98.2 F 104 H 18 132/73 97 09/04/22 12:55 98.3 F 101 H 18 135/71 96 09/04/22 12:50 98.2 F 103 H 18 147/69 H 96 09/04/22 12:45 98.4 F 103 H 19 120/66 96 09/04/22 12:40 98.2 F 106 H 18 151/74 H 97 09/04/22 12:20 98.3 F 110 H 18 144/78 H 91 L 09/04/22 12:10 98.3 F 107 H 19 144/78 H 92 L 09/04/22 11:20 98.3 F 105 H 19 121/79 99 09/04/22 11:05 98.1 F 108 H 18 127/76 96 09/04/22 19:06 98 F 109 H 14 159/90 H Intake and Output 09/04/22 09/05/22 09/05/22 23:59 07:59 15:59 Intake Total 1500 / 2480.89 1330 / 2170 840 / 2170 Output Total 785 / 785 Balance 1500 / 1340.89 545 / 1385 840 / 1385 Intake: Intake, Oral Amount 100 / 940 840 / 940 Intake, Total IV Amount 1500 / 1500 980 / 980 0.9 % Sodium Chloride 1,000 ml 880 / 880 @ 150 mls/hr IV .Q6H40M [facility] Rx# :[id number] Piperacillin/Tazo 3.375 gm In 0 100 / 100 .9 % Sodium Chloride 50 ml @ 100 mls/hr IV Q6H [facility] Rx#: [id number] Intake (Blood Product) Amt 0 / 830.89 250 / 250 Red Blood Cells Unit 0 / 250 250 / 250 [id number] Output: Output, Urine Amount 675 / 675 Output,
[2022-09-05 16:21] LABS: Hematocrit 23.8 % (42.0-52.0); Hemoglobin 7.8 g/dL (14.1-18.0)
--- NOTE | 2022-09-05 16:52 | PC.NURSE ---
aox4, able to make needs known to staff, has ambulated in room with standard walker well with rest periods taken periodically. he was medicated for pain at frequent intervals. medical staff attempted to swith pt to oral regime of oxycodone to replace dilaudid but pt was not able to tolerate because his pain was not adequately controlled. he has sat up to chair for majority of shift. is tolerating diet well. denies n/v/d but has been c/o hiccups this shift. he was medicated per dec with good effectiveness. nelia drain remains in place. total of 25ml of serosaquineous fluid drained so far this shift. no needs at this time.
--- NOTE | 2022-09-05 23:19 | PC.NURSE ---
he is A&Ox4. He did receive PRN pain medication via IV after ambulating around the unit. He ambulated around the entire unit with walker and assist x1. Edema to BLE. SCDS removed at this time for a break. ROSALINA drain emptied with 50mL of dark red blood.
[2022-09-06] VITALS (8 sets, daily range): BP systolic 95–133; BP diastolic 47–71; PULSE 60–85; RESP 18; TEMP 36.4–36.9; O2SAT 94–100; BMI 43.7
[2022-09-06 07:22] LABS: Basophils # 0.1 K/mm3 (0-0.2); Basophils % 0.5 % (0.1-2.0); Eosinophils # 0.1 K/mm3 (0.0-0.4); Eosinophils % 0.5 % (0.1-12.0); Hematocrit 23.3 % (42.0-52.0); Hemoglobin 7.8 g/dL (14.1-18.0); Lymphocytes # 2.6 K/mm3 (0.7-4.5); Mean Corpuscular HGB Conc 33.6 g/dL (31.8-35.4); Mean Corpuscular Hemoglobin 28.7 pg (27.0-31.2); Mean Corpuscular Volume 85.4 fl (80-94); Mean Platelet Volume 7.8 fl (7.4-10.4); Monocytes # 0.7 K/mm3 (0.1-1.0); Monocytes % 4.5 % (1.7-9.3); Neutrophils # 12.8 K/mm3 (1.8-7.8); Neutrophils % 78.5 % (37.0-80.0); Platelet Count 466 K/mm3 (142-424); Red Blood Count 2.73 M/mm3 (4.60-6.20); Red Cell Distribution Width 15.2 % (11.5-17.5); White Blood Count 16.3 K/mm3 (4.8-10.8)
--- NOTE | 2022-09-06 07:22 | EXP.ACUTE.PN ---
Subjective *Date: 09/06/22 *Time: 09:05 Interval history: Patient reports passing gas overnight. Has been ambulating with a walker. Pain doing better on current regimen of oxycodone 7.5 mg oral. Blood remained stable on morning labs. Liver function improving. Denies any nausea, vomiting, shortness of breath, chest pain, confusion. Mild edema in his legs but not painful per report, decreasing output in ROSALINA drain. Medical Exam Vital signs and Labs for Last 24 Hours: Vital Signs Temp Pulse Pulse Resp BP Pulse Ox 09/06/22 04:00 97.9 F 74 18 98/47 L 96 09/06/22 04:00 80 09/06/22 00:00 97.5 F L 64 18 95/47 L 98 09/06/22 00:00 60 09/05/22 20:00 97 09/05/22 20:00 90 09/05/22 20:00 98.2 F 94 H 18 101/49 L 97 09/05/22 16:00 80 09/05/22 16:00 98.4 F 81 18 137/69 96 09/05/22 12:00 98.2 F 70 18 114/66 92 L 09/05/22 12:00 93 H Intake and Output 09/05/22 09/05/22 09/06/22 15:59 23:59 06:59 Intake Total 1800 / 3710 580 / 3710 Output Total 78 / 863 30 / 30 Balance 1800 / 2847 502 / 2847 -30 / -30 Intake: Intake, Oral Amount 1800 / 2380 480 / 2380 Infusion Intake 100 / 100 Piperacillin/Tazo 3.375 gm In 0 100 / 100 .9 % Sodium Chloride 50 ml @ 100 mls/hr IV Q6H [facility] Rx#: [id number] Output: Output, Urine Amount 0 / 675 0 / 0 Output, Gastric Drainage Amount 78 / 188 Right Upper Quadrant 78 / 188 Output, Drainage Amount 30 / 30 right abdomen 30 / 30 Other: Number of Unmeasured Voids 1 1 Weight 146.567 kg Patient Weight 09/06/22 22:59 Weight 146.567 kg Laboratory Results - last 24 hr 09/04/22 08:34: Blood Type O Positive, Antibody Screen Negative, Crossmatch (AHG) See Detail 09/05/22 16:13: Hgb 7.8 L, Hct 23.8 L I & O for Labs for Last 24 Hours: Intake & Output 09/03/22 09/04/22 09/05/22 09/06/22 23:59 23:59 23:59 22:59 Intake Total 2959 / 3009 2130.89 / 2480.89 3710 / 3710 Output Total 785 / 785 665 / 1140 863 / 863 30 / 30 Balance 2174 / 2224 1465.89 / 1340.89 2847 / 2847 -30 / -30 Weight 140.704 kg 144.741 kg 145.785 kg 146.567 kg Constitutional: Present no acute distress, morbidly obese and cooperative Head: Present atraumatic and normocephalic ENT: Present normal exam and mucous membranes moist Neck: Present normal inspection Respiratory: Present normal respiratory effort; Absent wheezes or crackles Cardiac: Present Reg Rate and Rhythm GI: Present soft, tenderness (In right upper quadrant, improving) and normal bowel sounds; Absent distention or guarding Comments:: ROSALINA with dark old blood in place, no significant bleeding on bandages. Surgical bandages clean dry and intact Extremities: Present normal inspection, full ROM and edema (Trace) Skin: Present intact; Absent erythema Neuro: Present Grossly Intact, alert, awake, oriented x 3 and moves all extremities Assessment and Plan *Assessment and plan (1) Acute blood loss anemia: Problem details: Reopen laparotomy findings: There was a moderate amount of clot around the liver and in the gallbladder fossa. No evidence of any obvious active bleeding. Status: Acute Category: Medical Code(s): D62 - Acute posthemorrhagic anemia (2) Transaminitis: Status: Acute Category: Medical Code(s): R74.01 - Elevation of levels of liver transaminase levels (3) Acute cholecystitis: Status: Acute Category: Medical Code(s): K81.0 - Acute cholecystitis (4) Class 3 obesity: Status: Chronic Category: Medical Code(s): E66.01 - Morbid (severe) obesity due to excess calories Plan 37-year-old male with past medical history ADHD, Depression presents with Right upper abdominal quadrant pain associated with nausea, vomiting, CT findings and US findings concerning for Acute Cholecystitis. Status postcholecystectomy. Kidney function normal, LFTs significa
[2022-09-06 07:24] LABS: Alanine Aminotransferase 564 U/L (12-78); Albumin Level 2.7 g/dl (3.5-5.0); Alkaline Phosphatase 126 U/L (38-126); Anion Gap 12.2 mEq/L (5-15); Aspartate Amino Transferase 262 U/L (17-59); Bilirubin,Total 0.7 mg/dl (0.2-1.3); Blood Urea Nitrogen 12 mg/dl (9-20); Calcium 7.4 mg/dl (8.4-10.2); Carbon Dioxide 29 mmol/L (22.0-30.0); Chloride 100 mmol/L (98-107); Creatinine Clearance Estimated 157 mL/min (50-200); Estimated Glomerular Filt Rate 126 ml/min (>60); GFR (African American) 153 ML/MIN (>60); Globulin 2.6 g/dL (1.3-3.2); Glucose 111 mg/dl (74-100); Potassium 3.2 mmoL/L (3.5-5.1); Sodium 138 mmol/L (136-145); Total Protein,Serum 5.3 g/dl (6.3-8.2)
[2022-09-06 07:25] LABS: MANUAL DIFFERENTIAL MANUAL DIFFERENTIAL (MANUAL DIFF)
[2022-09-06 07:51] LABS: Lymphocytes % 28 % (10-50); Monocytes % 3 % (2-9); Neutrophils % 69 % (42-76); Total Cells Counted 100
[2022-09-06 07:52] LABS: Platelet Estimate Slight Increase; RBC Morphology Normal
--- NOTE | 2022-09-06 08:18 | DIET.NUTRFU ---
Addendum entered by Jeana Tran RD, LD 09/07/22 09:07: Diet advanced to soft diet and plan to discharge today. Original Note: Patient has now been on clear liquids x2 days, this is not meeting nutritional needs. Nursing has indicated it is being tolerated. Dr Calero indicated the cholcystitis improving. Anticipate upgrade soon. If diet continues greater then 3 days may benefit from supplements.
--- NOTE | 2022-09-06 10:44 | EXP.SURG.PN ---
Subjective Patient reports: no new complaints, feels better and flatus Exam Data for Last 24 hours Vital signs and Labs for Last 24 Hours: Temp Pulse Resp BP Pulse Ox 98.0 F 85 18 114/56 L 97 09/06/22 08:00 09/06/22 08:00 09/06/22 08:00 09/06/22 08:00 09/06/22 08:00 Laboratory Results - last 24 hr 09/04/22 08:34: Crossmatch (AHG) See Detail 09/05/22 16:13: Hgb 7.8 L, Hct 23.8 L 09/06/22 06:37: WBC 16.3 H, RBC 2.73 L, Hgb 7.8 L, Hct 23.3 L, MCV 85.4, MCH 28.7, MCHC 33.6, RDW 15.2, Plt Count 466 H, MPV 7.8, Neut % (Auto) 78.5, Lymph % (Auto) 16.0, [place] % (Auto) 4.5, Eos % (Auto) 0.5, Baso % (Auto) 0.5, Neut # (Auto) 12.8 H, Lymph # (Auto) 2.6, [place] # (Auto) 0.7, Eos # (Auto) 0.1, Baso # (Auto) 0.1, Total Counted 100, Neutrophils % (Manual) 69, Lymphocytes % (Manual) 28, Monocytes % (Manual) 3, Platelet Estimate Slight increase, RBC Morphology Normal 09/06/22 06:37: Sodium 138, Potassium 3.2 L, Chloride 100, Carbon Dioxide 29, Anion Gap 12.2, BUN 12, Creatinine 0.70, Estimated Creat Clear 157, Estimated GFR 126, Est GFR ( Amer) 153, Glucose 111 H, Calcium 7.4 L, Total Bilirubin 0.7, AST 262 H D, ALT 564 H*, Alkaline Phosphatase 126, Total Protein 5.3 L, Albumin 2.7 L, Globulin 2.6, Albumin/Globulin Ratio 1.0 L I & O for Last 24 hours: Intake & Output 09/03/22 09/04/22 09/05/22 09/06/22 11:59 11:59 11:59 10:59 Intake Total 4799 / 4799 410 / 410 4250.89 / 4250.89 1540 / 1540 Output Total 560 / 560 590 / 590 1285 / 1285 108 / 108 Balance 4239 / 4239 -180 / -180 2965.89 / 2965.89 1432 / 1432 Weight 310 lb 3.2 oz 319 lb 1.6 oz 321 lb 6.4 oz 323 lb 2 oz Microbiology Reports for the Last 24 Hours: Microbiology 09/01/22 16:45 Blood Blood Culture - Final Dermabacter hominis Constitutional Constitutional: no acute distress *Routine Respiratory Exam Respiratory: Present normal respiratory effort; Absent respiratory distress *Routine Cardiovascular Exam Cardiovascular: Absent tachycardia *Routine Abdominal Exam Abdominal: Present soft Comments: Incisions healing without sign of infection Progress Note: A&P Assessment and plan (1) Acute cholecystitis: Status: Acute Assessment and plan: Overall, continuing to improve status post cholecystectomy. Slight elevation in white blood cell count today likely reactive in nature; however, he will remain on Zosyn for now Continue Charlie-Saldivar drainage for now Continue to advance diet as tolerated (2) Acute blood loss anemia: Problem details: Reopen laparotomy findings: There was a moderate amount of clot around the liver and in the gallbladder fossa. No evidence of any obvious active bleeding. Status: Acute Assessment and plan: Hemoglobin stable. No evidence of ongoing blood loss. (3) Transaminitis: Status: Acute Assessment and plan: Significant improvement noted on a.m. labs (4) Class 3 obesity: Status: Chronic
--- NOTE | 2022-09-06 12:38 | PC.NURSE ---
pt had 1 unmeasured void
--- NOTE | 2022-09-06 15:17 | PC.NURSE ---
pt had 1 unmeasured void
--- NOTE | 2022-09-06 15:48 | PC.NURSE ---
SOME SLIGHT EDEMA NOTED TO LEFT UPPER EXTREMITY WHICH IS WEAR PT HAS MIDLINE PLACED. DR CALLOWAY WAS MADE AWARE. PT INSTRUCTED TO ELEVATE ARM ON PILLOWS AND PROVIDED PILLOWS. HE HAS AMBULATED IN HALLWAYX2 THIS SHIFT AND HAS AMBULATED TO RESTROOM WITH ASSISTANCE OF STANDARD WALKER AND TOLERATED WELL. HE HAS DENIED N/V/D, TELLS THIS RN HE IS PASSING GAS, BOWEL SOUNDS HYPOACTIVE, STILL NO BM, STOOL SOFTENER ORDERED DAILY. TOLERATED DIET WELL. WAS MEDICATED FOR PAIN X1 THIS SHIFT WITH GOOD EFFECTIVENESS.
[2022-09-07] VITALS: PULSE 70
[2022-09-07 03:45] VITALS: BP 125/61; PULSE 84; RESP 20; TEMP 36.8; O2SAT 98
[2022-09-07 04:00] VITALS: PULSE 80
--- NOTE | 2022-09-07 04:41 | PC.NURSE ---
no changes from previous assessment, pt medicated twice for c/o incisional pain rated 5-6/10, skin pwd, j/p to bulb suction patent, incisions with ryan lilian, noted left arm with mild generalized swelling, midline IV patient with blood return noted and flushes without difficulty, pt denies pain states its is swollen, no other issues at this time, no acute distress, + bowel sounds, - bm at this time.
[2022-09-07 04:56] VITALS: BMI 43.6
--- NOTE | 2022-09-07 06:26 | EXP.SURG.PN ---
Subjective Narrative: Patient doing quite well. Tolerating diet. He does state that he had an episode of urinary urgency which then subsided. Exam Data for Last 24 hours Vital signs and Labs for Last 24 Hours: Temp Pulse Resp BP Pulse Ox 98.2 F 80 20 125/61 98 09/07/22 03:45 09/07/22 04:00 09/07/22 03:45 09/07/22 03:45 09/07/22 03:45 Laboratory Results - last 24 hr 09/06/22 06:37: WBC 16.3 H, RBC 2.73 L, Hgb 7.8 L, Hct 23.3 L, MCV 85.4, MCH 28.7, MCHC 33.6, RDW 15.2, Plt Count 466 H, MPV 7.8, Neut % (Auto) 78.5, Lymph % (Auto) 16.0, [place] % (Auto) 4.5, Eos % (Auto) 0.5, Baso % (Auto) 0.5, Neut # (Auto) 12.8 H, Lymph # (Auto) 2.6, [place] # (Auto) 0.7, Eos # (Auto) 0.1, Baso # (Auto) 0.1, Total Counted 100, Neutrophils % (Manual) 69, Lymphocytes % (Manual) 28, Monocytes % (Manual) 3, Platelet Estimate Slight increase, RBC Morphology Normal 09/06/22 06:37: Sodium 138, Potassium 3.2 L, Chloride 100, Carbon Dioxide 29, Anion Gap 12.2, BUN 12, Creatinine 0.70, Estimated Creat Clear 157, Estimated GFR 126, Est GFR ( Amer) 153, Glucose 111 H, Calcium 7.4 L, Total Bilirubin 0.7, AST 262 H D, ALT 564 H*, Alkaline Phosphatase 126, Total Protein 5.3 L, Albumin 2.7 L, Globulin 2.6, Albumin/Globulin Ratio 1.0 L I & O for Last 24 hours: Intake & Output 09/04/22 09/05/22 09/06/22 09/07/22 12:59 12:59 11:59 11:59 Intake Total 900 / 900 Output Total 35 / 35 Balance 865 / 865 Weight 322 lb Microbiology Reports for the Last 24 Hours: Microbiology 09/01/22 16:45 Blood Blood Culture - Final NO GROWTH AFTER 5 DAYS 09/01/22 16:45 Blood Blood Culture - Final Dermabacter hominis *Routine Abdominal Exam Abdominal: Present soft Comments: ROSALINA output serosanguineous Progress Note: A&P Assessment and plan (1) Acute cholecystitis: Status: Acute Assessment and plan: Check labs today. Possible discharge home as early as later today. (2) Acute blood loss anemia: Problem details: Reopen laparotomy findings: There was a moderate amount of clot around the liver and in the gallbladder fossa. No evidence of any obvious active bleeding. Status: Acute (3) Transaminitis: Status: Acute (4) Class 3 obesity: Status: Chronic
--- NOTE | 2022-09-07 06:42 | PC.NURSE ---
75CC SEROSANGUINOUS DRAINAGE EMPTIED TOTAL THIS SHIFT.
[2022-09-07 07:23] LABS: Alanine Aminotransferase 356 U/L (12-78); Albumin Level 2.6 g/dl (3.5-5.0); Alkaline Phosphatase 117 U/L (38-126); Aspartate Amino Transferase 99 U/L (17-59); Bilirubin,Total 0.9 mg/dl (0.2-1.3); Blood Urea Nitrogen 9 mg/dl (9-20); Calcium 7.6 mg/dl (8.4-10.2); Carbon Dioxide 30 mmol/L (22.0-30.0); Chloride 101 mmol/L (98-107); Creatinine Clearance Estimated 137 mL/min (50-200); Estimated Glomerular Filt Rate 108 ml/min (>60); GFR (African American) 131 ML/MIN (>60); Globulin 2.7 g/dL (1.3-3.2); Glucose 89 mg/dl (74-100); Magnesium 1.9 mg/dl (1.6-2.3); Sodium 138 mmol/L (136-145); Total Protein,Serum 5.3 g/dl (6.3-8.2)
[2022-09-07 07:27] LABS: Basophils # 0.2 K/mm3 (0-0.2); Basophils % 1.2 % (0.1-2.0); Eosinophils # 0.2 K/mm3 (0.0-0.4); Eosinophils % 1.4 % (0.1-12.0); Hematocrit 25.1 % (42.0-52.0); Hemoglobin 8.3 g/dL (14.1-18.0); Lymphocytes # 3.3 K/mm3 (0.7-4.5); Lymphocytes % 20.8 % (10-50); Mean Corpuscular HGB Conc 33.2 g/dL (31.8-35.4); Mean Corpuscular Hemoglobin 27.9 pg (27.0-31.2); Mean Corpuscular Volume 83.8 fl (80-94); Mean Platelet Volume 7.5 fl (7.4-10.4); Monocytes # 0.7 K/mm3 (0.1-1.0); Monocytes % 4.7 % (1.7-9.3); Neutrophils # 11.4 K/mm3 (1.8-7.8); Neutrophils % 71.8 % (37.0-80.0); Platelet Count 536 K/mm3 (142-424); Red Blood Count 2.99 M/mm3 (4.60-6.20); Red Cell Distribution Width 15.4 % (11.5-17.5); White Blood Count 15.8 K/mm3 (4.8-10.8)
[2022-09-07 07:28] LABS: MANUAL DIFFERENTIAL MANUAL DIFFERENTIAL (MANUAL DIFF)
[2022-09-07 07:46] LABS: Lymphocytes % 27 % (10-50); Monocytes % 10 % (2-9); Neutrophils % 62 % (42-76); Total Cells Counted 100
[2022-09-07 07:47] LABS: Anisocytosis 1+; Hypochromasia 1+; Platelet Estimate Slight Increase
[2022-09-07 08:00] VITALS: BP 138/76; PULSE 92; PULSE 99; RESP 18; TEMP 36.7; O2SAT 95
--- NOTE | 2022-09-07 09:16 | EXP.DC.SUM ---
General Admission date:: 09/02/22 Discharge date: 09/07/22 HPI HPI HPI: Patient is a 37-year-old male from [facility] who had presented to [facility] emergency department on 08/28/2022 with acute right upper quadrant pain. Work-up in the emergency department included CT scan which revealed findings of gallstones and an otherwise unremarkable gallbladder . He was managed as an outpatient and scheduled to see a surgeon as an outpatient. Apparently the surgeon was not in his insurance network and he had set up an appointment to see me in the office yesterday on 09/01/2022. Reports that he had severe pain ever since 08/28/2022. When he presented to the office he was experiencing unrelenting pain and noted to have a heart rate of 143. He was sent to the emergency department due to potential sepsis and acute abdomen. Evaluation in the emergency department revealed leukocytosis of 18,500. Liver function tests reveal a bilirubin of 2.2 with ALT of 93 and alkaline phosphatase of 191. He underwent CT scan which revealed findings of mild gallbladder wall distention and gallbladder wall thickening with cholelithiasis and pericholecystic inflammatory change change. There was actually stranding in the pericolonic fat, duodenum, and hepatic flexure felt to be secondary to significant cholecystitis. Also found to be a small to moderate amount of free fluid. Ultrasound revealed findings of cholelithiasis with gallbladder distention, wall thickening, positive sonographic Hyde sign suspicious for acute cholecystitis. He was admitted for inpatient management for acute cholecystitis. Interestingly the patient does state that he had a previous abdominal infection and had drain tubes placed for about 2 months approximately 8 or 9 years ago. He does not know the details of this. Hospital Course Hospital Course Hospital Course: 37-year-old male with past medical history ADHD, Depression presents with Right upper abdominal quadrant pain associated with nausea, vomiting, CT findings and US findings concerning for Acute Cholecystitis.? Surgery was consulted, patient taken for cholecystectomy. After the procedure, he continued to have abdominal pain and significant drop in his hemoglobin. Second surgery required due to concern for blood loss in his abdomen. Surgical findings noting significant clot around liver but no active bleeding. Hemoglobin stabilized. Was monitored for several additional days while hemoglobin improved and to continue IV antibiotics. Meeting criteria for discharge home to finish antibiotic course, advance diet, have close follow-up with surgery in the outpatient setting. Hemoglobin 8.3 on day of discharge. Problems addressed as follows: Sepsis (POA),? Resolved Acute cholecystitis, necrotic -Initially presented with symptoms of sepsis. Started on broad-spectrum antibiotics with Zosyn and treated with IV fluids. Symptoms gradually improved after his cholecystectomy. Noted to have significant postop bleeding made worse by DVT prophylaxis. DVT prophylaxis was stopped and patient necessitated transfusion a total of 3 units packed red blood cells. Hemoglobin stabilized and continued to improve over the last 3 days of his admission. Slowly advance diet, tolerating mechanical soft on morning of discharge. Passing gas for several days and had small bowel movement on day of discharge. No emesis. No shortness of breath. Plan to continue 14 days total antibiotics, transition to Augmentin at discharge. Pain difficult to control but tolerating oxycodone 7.5 mg. Discharged with 3 days of medication, further meds per surgery at follow-up. Blood close follow-up for removal of ryan and further evaluation. Also sent with Phenergan for nausea which has been well controlled the past few days. Acute blood loss anemia -Initially presented with hemoglobin greater than 13. After surgery drop down to hemoglobin of 6.3. Received 3 unit
--- NOTE | 2022-09-07 09:56 | EXP.ANES.II ---
[facility] Anesthesia Record Part II Anesthesia Record Part II Discharge Time: 19:30 (09/04/22) Destination: Medical Surgical Department PACU nurse assessment reviewed?: Yes Patient Condition:: Good Anesthesia Complications:: None Swallowing reflex intact?: Yes Cyanosis?: No Blood Pressure: 139/74 Pulse Rate: 102 Temperature: 98.1 F Mental Status: Alert & Oriented Pain level:: 6 Nausea and/or vomitting:: None Intake, IV Amount: 0
[2022-09-07 09:58] VITALS: BP 139/74; PULSE 102; TEMP 36.7
[2022-09-07 12:00] VITALS: BP 105/58; PULSE 79; PULSE 81; RESP 18; TEMP 37.3; O2SAT 95
--- NOTE | 2022-09-07 13:00 | PC.NURSE ---
Spoke with Dr. Hamlin he wants to pull out midline
--- NOTE | 2022-09-07 13:01 | PC.NURSE ---
Pts is in room waiting for d/c, but waiting for dr paz to come and pull nelia drain.
--- NOTE | 2022-09-07 13:28 | P.PN_ITS ---
Subjective Narrative: Doing well. Tolerating bland diet. ROSALINA drain more serous. Hgb 8.3 Exam Data for Last 24 hours Vital signs and Labs for Last 24 Hours: Temp Pulse Resp BP Pulse Ox 99.1 F 81 18 105/58 L 95 09/07/22 12:00 09/07/22 12:00 09/07/22 12:00 09/07/22 12:00 09/07/22 12:00 Laboratory Results - last 24 hr 09/04/22 08:34: Crossmatch (AHG) See Detail 09/07/22 07:08: WBC 15.8 H, RBC 2.99 L, Hgb 8.3 L, Hct 25.1 L, MCV 83.8, MCH 27.9, MCHC 33.2, RDW 15.4, Plt Count 536 H, MPV 7.5, Neut % (Auto) 71.8, Lymph % (Auto) 20.8, [place] % (Auto) 4.7, Eos % (Auto) 1.4, Baso % (Auto) 1.2, Neut # (Auto) 11.4 H, Lymph # (Auto) 3.3, [place] # (Auto) 0.7, Eos # (Auto) 0.2, Baso # (Auto) 0.2, Total Counted 100, Neutrophils % (Manual) 62, Lymphocytes % (Manual) 27, Monocytes % (Manual) 10 H, Metamyelocytes % 1.0, Platelet Estimate Slight increase, Hypochromasia 1+, Anisocytosis 1+ 09/07/22 07:08: Sodium 138, Potassium 3.0 L, Chloride 101, Carbon Dioxide 30, Anion Gap 10.0, BUN 9, Creatinine 0.80, Estimated Creat Clear 137, Estimated GFR 108, Est GFR ( Amer) 131, Glucose 89, Calcium 7.6 L, Magnesium 1.9, Total Bilirubin 0.9, AST 99 H D, ALT 356 H*, Alkaline Phosphatase 117, Total Protein 5.3 L, Albumin 2.6 L, Globulin 2.7, Albumin/Globulin Ratio 1.0 L I & O for Last 24 hours: Intake & Output 09/05/22 09/06/22 09/07/22 09/08/22 12:59 11:59 11:59 11:59 Intake Total 1260 / 1260 480 / 480 Output Total 110 / 110 0 / 0 Balance 1150 / 1150 480 / 480 Weight 322 lb Microbiology Reports for the Last 24 Hours: Microbiology 09/01/22 16:45 Blood Blood Culture - Final NO GROWTH AFTER 5 DAYS *Routine Abdominal Exam Abdominal: Present soft Comments: Incision clean. Progress Note: A&P Assessment and plan (1) Acute cholecystitis: Status: Acute Assessment and plan: Removed ROSALINA drain. DC home today. (2) Acute blood loss anemia: Problem details: Reopen laparotomy findings: There was a moderate amount of clot around the liver and in the gallbladder fossa. No evidence of any obvious active bleeding. Status: Acute (3) Transaminitis: Status: Acute (4) Class 3 obesity: Status: Chronic
--- NOTE | 2022-09-07 13:28 | PC.NURSE ---
pt had 2 unmeasured voids
--- NOTE | 2022-09-08 10:44 | CARE MANAGER ---
Spoke with patient related to hospital discharge. He states his incision is bleeding quite a bit and he is having to change his dressing frequently. He reports that it seems to be slowing down. I encouraged him to contact Dr. Ayala's office if it continues to have increased drainage and verbalized understanding. He is aware of his follow up appointment and picked up his new medications. MAGDALENE Linton
== END 2022-09-07 14:06 | disposition home or self-care (01) | DRG 414 ==
LOC: ER 20:14 → 2ND 21:16
PROVIDERS: Surgery; Admitting Provider Nurse Practitioner Family; Emergency Provider Emergency Medicine; Visit Provider Internal Medicine Adolescent Medicine
PROC: 0FT44ZZ Resection of Gallbladder, Percutaneous Endoscopic Approach (ICD-10-PCS; CPT 47562; principal; 2022-09-02 12:15)
PROC: 0W3F0ZZ Control Bleeding in Abdominal Wall, Open Approach (ICD-10-PCS; CPT 49000; principal; 2022-09-04 17:00)
DX: K80.00 Calculus of gallbladder with acute cholecystitis without obstruction (principal); K65.9 Peritonitis, unspecified; Z68.41 Body mass index [BMI] 40.0-44.9, adult; N17.9 Acute kidney failure, unspecified; D62 Acute posthemorrhagic anemia; K91.841 Postprocedural hemorrhage of a digestive system organ or structure following other procedure; K82.A1 Gangrene of gallbladder in cholecystitis; F90.9 Attention-deficit hyperactivity disorder, unspecified type; F32.A Depression, unspecified; Z53.31 Laparoscopic surgical procedure converted to open procedure; E66.01 Morbid (severe) obesity due to excess calories; R74.01 Elevation of levels of liver transaminase levels; Y83.8 Other surgical procedures as the cause of abnormal reaction of the patient, or of later complication, without mention of misadventure at the time of the procedure
CPT/HCPCS: 47600; 49002; 36410; 36415; 71045; 74175; 74177; 76705; 80048; 80053; 80076; 81001; 82962; 83036; 83605; 83690; 83735; 84484; 85007; 85014; 85018; 85025; 85610; 86850; 87040; 87077; 93005; 99285; C9803; G0378; J1956; J2405; J2543; J2710; P9016; Q9967; U0003; U0005

== ENCOUNTER → 2022-09-10 10:53 | Outpatient (CLI) | payer OTHER, SELFPAY ==
--- NOTE | 2022-09-10 11:09 | XR_ITS ---
FINAL REPORT CLINICAL HISTORY: Right ankle pain, fall FINDINGS: RIGHT ANKLE Three views demonstrate no acute fracture or dislocation. A Keiry deformity is noted. The mortise is intact. There is soft tissue swelling about the ankle. IMPRESSION: Soft tissue swelling without acute process. Reviewed, Interpreted and Dictated by Abe Lazo MD Transcribed by Ping Alejandra Authenticated and [facility]
[2022-09-10 11:24] LABS: Basophils # 0.1 K/mm3 (0-0.2); Basophils % 0.6 % (0.1-2.0); Eosinophils # 0.2 K/mm3 (0.0-0.4); Eosinophils % 1.7 % (0.1-12.0); Hematocrit 30.8 % (42.0-52.0); Hemoglobin 9.8 g/dL (14.1-18.0); Lymphocytes # 2.5 K/mm3 (0.7-4.5); Lymphocytes % 25.9 % (10-50); Mean Corpuscular HGB Conc 31.8 g/dL (31.8-35.4); Mean Corpuscular Hemoglobin 27.7 pg (27.0-31.2); Mean Platelet Volume 7.9 fl (7.4-10.4); Monocytes # 0.4 K/mm3 (0.1-1.0); Monocytes % 4.6 % (1.7-9.3); Neutrophils # 6.4 K/mm3 (1.8-7.8); Neutrophils % 67.3 % (37.0-80.0); Platelet Count 532 K/mm3 (142-424); Red Blood Count 3.54 M/mm3 (4.60-6.20); Red Cell Distribution Width 15.9 % (11.5-17.5); White Blood Count 9.5 K/mm3 (4.8-10.8)
[2022-09-10 11:30] LABS: Chloride 102 mmol/L (98-107)
[2022-09-10 11:31] LABS: Potassium 3.9 mmoL/L (3.5-5.1); Sodium 139 mmol/L (136-145)
[2022-09-10 11:33] LABS: Alanine Aminotransferase 145 U/L (12-78); Anion Gap 11.9 mEq/L (5-15); Aspartate Amino Transferase 48 U/L (17-59); Blood Urea Nitrogen 7 mg/dl (9-20); Carbon Dioxide 29 mmol/L (22.0-30.0); Estimated Glomerular Filt Rate 108 ml/min (>60); GFR (African American) 131 ML/MIN (>60)
[2022-09-10 11:34] LABS: Albumin Level 3.2 g/dl (3.5-5.0); Alkaline Phosphatase 106 U/L (38-126); Bilirubin,Total 0.5 mg/dl (0.2-1.3); Calcium 8.6 mg/dl (8.4-10.2); Globulin 3.1 g/dL (1.3-3.2); Glucose 91 mg/dl (74-100); Total Protein,Serum 6.3 g/dl (6.3-8.2)
== END ==
PROVIDERS: Visit Provider Surgery
DX: D62 Acute posthemorrhagic anemia (principal); M25.571 Pain in right ankle and joints of right foot
CPT/HCPCS: 36415; 73610; 80053; 85025; 86850

== ENCOUNTER 2023-03-10 09:32 | Emergency (ER) | payer OTHER, SELFPAY ==
--- NOTE | 2023-03-10 09:43 | EXP.UTC ---
Discharge Plan Disposition Patient Disposition: Home, Self-Care Condition: Good Prescriptions Prescriptions: New methylprednisolone 4 mg Tablets,Dose Pack 4 mg PO DIRECTED Qty: 21 0RF No Action Rexulti 1 mg tablet 1 mg PO DAILY Label Comments: TAKE 1 TABLET BY MOUTH EVERY DAY quetiapine [Seroquel] 50 mg tablet 50 mg PO HS Label Comments: TAKE 1 TABLET BY MOUTH AT BEDTIME dextroamphetamine-amphetamine [Adderall] 10 mg Tablet 10 mg PO 1500 dextroamphetamine-amphetamine [Adderall XR] 30 mg capsule,extended release 24hr 30 mg PO DAILY Label Comments: TAKE 1 CAPSULE BY MOUTH EVERY DAY desvenlafaxine succinate [Pristiq] 25 mg tablet extended release 24 hr 25 mg PO DAILY Label Comments: TAKE 1 TABLET BY MOUTH EVERY DAY docusate sodium 100 mg Capsule 100 mg PO DAILY 30 Days Qty: 30 0RF Referrals Follow up/Referrals: Provider,Referral, [Primary Care Provider] - See instructions Activity Restrictions/Add. Instructions Additional Instructions/Restrictions: Rest the extremity, Elevate the extremity as tolerated while you are resting. Take the medications as directed. Follow up with your regular doctor. GO TO THE ER FOR ANY WORSENING SYMPTOMS Don't start the oral steroids until tomorrow, since you had the shot here today. Clinical Impressions Clinical Impression: Acute pain of right knee Stand Alone Forms Stand Alone Forms: Work/School Release Instructions Patient Instructions: [facility] for Gout Discharge ED Provider: Vince Aparicio [facility] [place] General Stated complaint: RT knee pain no known accident Time Seen by Provider: 03/10/23 09:44 History of Present Illness Provider Complaint: He c/o right knee pain for the past 2 days. He denies any known injury, but he is afraid he has torn something in this knee. He states that he woke up with his knee feeling like this 2 days ago. He denies any other joint pain or complaints. He states that trying to walk or bear weight on the knee makes his pain much worse. He denies any fever/chills. He does have a history of 1 gout flare up that affected his right foot years ago . Related Data Home Medications Medication Instructions Recorded Confirmed brexpiprazole 1 mg tablet (Rexulti) 1 mg PO DAILY Depression 09/01/22 10/13/22 dextroamphetamine-amphetamine 10 10 mg PO 1500 ADHD 09/01/22 10/13/22 mg tablet (Adderall) quetiapine 50 mg tablet (Seroquel) 50 mg PO HS Insomnia 09/01/22 10/13/22 desvenlafaxine succinate 25 mg 25 mg PO DAILY Depression 09/02/22 10/13/22 tablet,extended release 24 hr (Pristiq) dextroamphetamine-amphetamine ER 30 mg PO DAILY ADHD 09/02/22 10/13/22 30 mg 24hr capsule,extend release (Adderall XR) Previous Rx's Medication Instructions Recorded docusate sodium 100 mg capsule 100 mg PO DAILY 30 days #30 caps 09/07/22 methylprednisolone 4 mg tablets in 4 mg PO DIRECTED #21 tabs 03/10/23 a dose pack Allergies Allergy/AdvReac Type Severity Reaction Status Date / Time No Known Allergies Allergy Verified 03/10/23 09:53 [facility] Disclaimer: The information contained in this section may have been updated after the patient was seen, as this information can be updated by other users. Medical History ADHD Depression Surgical History History of laparoscopic cholecystectomy Status post repair of glenoid labrum Social History Smoking Status: Never smoker alcohol intake: never substance use type: denies use current occupational status: employed Travel in the last 8 weeks: None ROS Obtained: Yes All systems reviewed & no additional complaints except as documented Constitutional Constitutional: Denies chills and Denies fever(s) Eyes Eyes: Denies eye discharge ENT Ea
[2023-03-10 09:50] VITALS: BP 134/79; PULSE 95; RESP 18; TEMP 36.6; O2SAT 100; BMI 37.3
[2023-03-10 11:12] LABS: Basophils % 0.5 % (0.1-2.0); Eosinophils # 0.1 K/mm3 (0.0-0.4); Eosinophils % 1.2 % (0.1-12.0); Hemoglobin 14.2 g/dL (14.1-18.0); Lymphocytes # 1.7 K/mm3 (0.7-4.5); Lymphocytes % 22.9 % (10-50); Mean Corpuscular HGB Conc 33.1 g/dL (31.8-35.4); Mean Corpuscular Hemoglobin 26.3 pg (27.0-31.2); Mean Corpuscular Volume 79.5 fl (80-94); Mean Platelet Volume 7.6 fl (7.4-10.4); Monocytes # 0.3 K/mm3 (0.1-1.0); Monocytes % 4.4 % (1.7-9.3); Neutrophils # 5.2 K/mm3 (1.8-7.8); Neutrophils % 70.9 % (37.0-80.0); Platelet Count 322 K/mm3 (142-424); Red Cell Distribution Width 15.1 % (11.5-17.5); White Blood Count 7.3 K/mm3 (4.8-10.8)
[2023-03-10 11:17] LABS: Anion Gap 17.4 mEq/L (5-15); Blood Urea Nitrogen 11 mg/dl (9-20); Calcium 8.9 mg/dl (8.4-10.2); Carbon Dioxide 27 mmol/L (22.0-30.0); Chloride 98 mmol/L (98-107); Creatinine Clearance Estimated 182 mL/min (50-200); Estimated Glomerular Filt Rate 84 ml/min (>60); GFR (African American) 101 ML/MIN (>60); Glucose 155 mg/dl (74-100); Potassium 3.4 mmoL/L (3.5-5.1); Sodium 139 mmol/L (136-145)
[2023-03-10 11:22] LABS: C-Reactive Protein 11.3 mg/L (0-4)
[2023-03-10 11:45] LABS: Erythrocyte Sedimentation Rate 22 mm/hr (0-15)
[2023-03-10 11:56] VITALS: BP 134/79; PULSE 95; RESP 18; TEMP 36.6
== END 2023-03-10 11:56 | disposition home or self-care (01) ==
PROVIDERS: Emergency Provider Nurse Practitioner Family
DX: M25.561 Pain in right knee (principal)
CPT/HCPCS: 80048; 84550; 85025; 85651; 86140; 96372; 99204; 99212; G0463

== ENCOUNTER 2025-01-27 16:53 | Emergency (ER) | payer BC, SELFPAY ==
[2025-01-27 17:04] VITALS: BP 148/81; PULSE 110; RESP 20; TEMP 36.6; O2SAT 98; BMI 44.6
--- NOTE | 2025-01-27 17:04 | HMH.EDGENADL ---
Discharge Plan Disposition Patient Disposition: Home, Self-Care Prescriptions Prescriptions: New amoxicillin-pot clavulanate 875-125 mg tablet 1 tab PO BID Qty: 20 0RF No Action Rexulti 1 mg tablet 1 mg PO DAILY Patient Comments: TAKE 1 TABLET BY MOUTH EVERY DAY quetiapine [Seroquel] 50 mg tablet 50 mg PO HS Patient Comments: TAKE 1 TABLET BY MOUTH AT BEDTIME dextroamphetamine-amphetamine [Adderall] 10 mg Tablet 10 mg PO 1500 dextroamphetamine-amphetamine [Adderall XR] 30 mg capsule,extended release 24hr 30 mg PO DAILY Patient Comments: TAKE 1 CAPSULE BY MOUTH EVERY DAY desvenlafaxine succinate [Pristiq] 25 mg tablet extended release 24 hr 25 mg PO DAILY Patient Comments: TAKE 1 TABLET BY MOUTH EVERY DAY docusate sodium 100 mg Capsule 100 mg PO DAILY 30 Days Qty: 30 0RF methylprednisolone 4 mg Tablets,Dose Pack 4 mg PO DIRECTED Qty: 21 0RF Referrals Follow up/Referrals: Malena Mata MD [Primary Care Provider] - See instructions Activity Restrictions/Add. Instructions Additional Instructions/Restrictions: Take Augmentin as prescribed. Take Tylenol 1000 mg every 6 hours on a schedule for pain. Continue taking diclofenac as prescribed. Follow-up with dentist. Please return emerged part with any new, concerning, worsening symptoms. Clinical Impressions Clinical Impression: Pain, dental Print Language Print Language: Portuguese Discharge ED Provider: Renaldo Shaw General Adult HPI General Chief complaint: Dental/Oral Stated complaint: Right jaw pain Time Seen by Provider: 01/27/25 16:55 Mode of Arrival: Ambulatory Source of Information: Patient Limitations: No Limitations History of Present Illness HPI narrative: This is a 39-year-old male who presents with right lower tooth pain. States that it began a couple days ago. Has a broken tooth in that area. Has not seen a dentist. Reports his pain was worse whenever he bites down. Denies any swelling to the side of face. Denies fever. Has been taking diclofenac at home which she is prescribed for back pain as well as a Percocet 10 which she had leftover from a spinal fusion without any significant relief. Related Data Home Medications ?Medication ?Instructions ?Recorded ?Confirmed brexpiprazole 1 mg tablet (Rexulti) 1 mg PO DAILY Depression 09/01/22 10/13/22 dextroamphetamine-amphetamine 10 10 mg PO 1500 ADHD 09/01/22 10/13/22 mg tablet (Adderall) quetiapine 50 mg tablet (Seroquel) 50 mg PO HS Insomnia 09/01/22 10/13/22 desvenlafaxine succinate 25 mg 25 mg PO DAILY Depression 09/02/22 10/13/22 tablet,extended release 24 hr (Pristiq) dextroamphetamine-amphetamine ER 30 mg PO DAILY ADHD 09/02/22 10/13/22 30 mg 24hr capsule,extend release (Adderall XR) Previous Rx's ?Medication ?Instructions ?Recorded docusate sodium 100 mg capsule 100 mg PO DAILY 30 days #30 caps 09/07/22 methylprednisolone 4 mg tablets in 4 mg PO DIRECTED #21 tabs 03/10/23 a dose pack amoxicillin 875 mg-potassium 1 tab PO BID #20 tabs 01/27/25 clavulanate 125 mg tablet Allergies Allergy/AdvReac Type Severity Reaction Status Date / Time No Known Allergies Allergy Verified 03/10/23 09:53 [facility] Disclaimer: The information contained in this section may have been updated after the patient was seen, as this information can be updated by other users. Medical History ADHD Depression Surgical History History of laparoscopic cholecystectomy Status post repair of glenoid labrum Social History Smoking Status: Current every day smoker alcohol intake: never substance use type: denies use current occupational status: employed Travel in the last 8 weeks: None Have you lived/traveled outside [place] in past 30 days?: No Contact w/someone who lives/traveled outside [place] past 30 days?: No Exposure to someone with infectious disease in past 14 days?: No Do you have a fever (greater than 100.4 F or 38 C)?: No Have you tested positive for COVID-19: No Exposed to someone with COVID-19 in past 14 days?: No Do you have a sore throat?: No Do you have a cough?: No Do you have any weakness?: No Do you have any diarrhea?: No Are you experiencing any unusual bleeding?: No Do you have any muscle aches/pain?: No Do you have any abdominal pain?: No Are you experiencing loss of taste or smell?: No Other Medical History Have you received the Flu Vaccine for this season: No Have you received the Pneumonia Vaccine: No ROS Obtained: Yes All systems reviewed & no additional complaints except as documented Physical Exam General General appearance: alert and in no apparent distress Eye Eye exam: Present normal appearance, PERRL and EOMI ENT ENT exam: Present other (Poor dentition, dental caries and chronically fractured tooth to the right lower molars. No significant fluctuance or swelling.) Respiratory Respiratory exam: Present normal lung sounds bilaterally; Absent respiratory distress Cardiovascular Cardiovascular exam: Present regular rate and normal rhythm Abdominal Exam Abdominal exam: Present soft and distention; Absent tenderness, guarding or rebound Extremities Exam Extremities exam: Present normal inspection Neurological Exam Neurological exam: Present alert and oriented X3 Skin Skin exam: Present warm and dry Medical Decision Making Medical Records Medical records reviewed: Yes I reviewed the patient's medical records. Screening: Per USPSTF and CDC recommendations, given the prevalence of disease in our region, it is our hospital?s policy to screen for HIV and viral Hepatitis for all patients aged 18 and over and those with ongoing risk factors. Jonny Inquiry Pt receiving controlled substance: No Vital Signs: 01/27/25 17:04 Temperature 97.8 F Temperature Source Oral Pulse Rate [Right] 110 H Respiratory Rate 20 Blood Pressure [Right Arm] 148/81 H Blood Pressure Mean [Right Arm] 103 02 Sat by Pulse Oximetry 98 Orders (Tests/Meds): ED MEDICATIONS Discontinued Medications Generic Name Dose Route Start Last Admin Trade Name Freq PRN Reason Stop Dose Admin Lidocaine/Epinephrine 10 ml 01/27/25 17:03 Lidocaine 1% W/Epi 1:100,000 20ml Vial IJ 01/27/25 17:04 ONCE ONE Medical Decision Narrative: In summary, this 39-year-old male presents to the emergency department today with right lower jaw/tooth pain. On initial evaluation patient is well-appearing, no acute distress. Differential diagnosis includes but is not limited to dental caries, periodontitis, periapical abscess. Based on physical exam and history, most likely diagnosis is periapical abscess. Counseled the patient on management of pain at home with Tylenol/NSAIDs and offered the patient a dental block which he accepted. Performed right sided inferior alveolar nerve block with significant relief. Prescribed Augmentin x 10 days and instructed the patient to follow-up with his dentist. Ultimately discharged in stable condition. Procedures Nerve Block Nerve Block 1: Local Anesthetic: lidocaine 1% and bupivacaine 0.5% Amount of anesthesia used (mL): 5 Side: Right Intraoral Nerve Block: inferior alveolar Procedure Successful: Yes Patient Tolerated Procedure: well Complications: none Critical Care Critical Care Time Critical Care Time: No
[2025-01-27] MEDS: LIDOCAINE 1% W/EPI 1:100,000 20ML VIAL 10 ML IJ (17:20)
[2025-01-27 17:27] VITALS: BP 124/84; PULSE 103; RESP 16; TEMP 36.7; O2SAT 95
== END 2025-01-27 17:28 | disposition home or self-care (01) ==
PROVIDERS: Emergency Provider Student in an Organized Health Care Education/Training Program; PCP Family Medicine
DX: K08.89 Other specified disorders of teeth and supporting structures (principal); R68.84 Jaw pain; F32.A Depression, unspecified; F90.9 Attention-deficit hyperactivity disorder, unspecified type; Z72.0 Tobacco use
CPT/HCPCS: 99283